=== PATIENT | male | born 1965 | race African-American/Black ===

== ENCOUNTER 2017-02-11 06:01 | Day surgery (SDC) | payer OTHER ==
[2017-02-11] MEDS ORDERED: LACTATED RINGERS 1,000 ML IV ONE (06:54)
[2017-02-11] MEDS ORDERED: INSULIN REGULAR HUMAN 100 UNIT/1 ML 10 ML MDV ONE ×2 (07:11→08:26)
[2017-02-11] MEDS ORDERED: PROPOFOL 200 MG/20 ML VIAL IVP ONE (08:00)
[2017-02-11] MEDS ORDERED: LIDOCAINE-MPF 2% 5 ML VIAL IM ONE (08:00)
[2017-02-11 09:44] VITALS: BP 140/92
== END 2017-02-11 06:02 | disposition home or self-care (01) ==
LOC: SDS 06:01
PROVIDERS: ATTEND Surgery
PROC: 0DBL8ZX Excision of Transverse Colon, Via Natural or Artificial Opening Endoscopic, Diagnostic (ICD-10-PCS; 2017-02-11)
PROC: 0DBN8ZX Excision of Sigmoid Colon, Via Natural or Artificial Opening Endoscopic, Diagnostic (ICD-10-PCS; 2017-02-11)
PROC: 0DBK8ZX Excision of Ascending Colon, Via Natural or Artificial Opening Endoscopic, Diagnostic (ICD-10-PCS; principal; 2017-02-11 07:30)
DX: Z12.11 Encounter for screening for malignant neoplasm of colon (principal); D12.2 Benign neoplasm of ascending colon; D12.5 Benign neoplasm of sigmoid colon; D12.3 Benign neoplasm of transverse colon; K64.8 Other hemorrhoids; E11.9 Type 2 diabetes mellitus without complications; I10 Essential (primary) hypertension; G47.33 Obstructive sleep apnea (adult) (pediatric)
CPT/HCPCS: 45380; J1815; J7120

== ENCOUNTER 2019-09-05 18:34 | Emergency (ER) | payer OTHER ==
--- NOTE | 2019-09-05 19:58 | ED Physician Documentation ---
History of Present Illness - Stated complaint Stated Complaint: TREVIZO - Chief complaint Chief Complaint: Neuro - History obtained from History obtained from: Patient (The patient is a 54-year-old male who is insulin-dependent diabetic presents tonight with a headache that started about 36 hours ago it was gradual in onset he does have a history of hypertension and headaches And reports that they usually resolve with either Tylenol or Profen b ut this headache has not resolved. He reports bifrontal and bitemporal headache without visual or hearing loss he denies any trauma denies being anticoagulated. Denies neck pain or fevers or rash. Reports the headache is not sudden in onset not maximum in intensity and not the worst headache of his life.) Review of Systems Constitutional: reports: Reviewed and negative Eyes: reports: Reviewed and negative Ears: reports: Reviewed and negative Nose: reports: Reviewed and negative Throat: reports: Reviewed and negative Cardiac: reports: Reviewed and negative Respiratory: reports: Reviewed and negative GI: reports: Reviewed and negative : reports: Reviewed and negative Skin: reports: Reviewed and negative Musculoskeletal: reports: Reviewed and negative Neurologic: reports: Headache Psychiatric: reports: Reviewed and negative Endocrine: reports: Reviewed and negative Immunocompromised: reports: Reviewed and negative PD PAST MEDICAL HISTORY - Past Medical History Past Medical History: Yes Cardiovascular: Hypertension Respiratory: None Endocrine/Autoimmune: Type 2 diabetes GI: None : None HEENT: None Psych: None Musculoskeletal: None Derm: None - Past Surgical History Past Surgical History: No - Present Medications Home Medications: Ambulatory Orders Medication Instructions Recorded Confirmed Insulin Detemir [Levemir] 10 unit SUBQ BID 02/10/17 09/05/19 Insulin Regular Human [NovoLIN R] 10 unit IVP ONCE 02/10/17 09/05/19 Sitagliptin Phos/Metformin HCl 1 each PO BID 02/10/17 09/05/19 [Janumet 50-500 mg Tablet] lisinopriL [Lisinopril] 20 mg PO DAILY 02/10/17 09/05/19 - Allergies Allergies/Adverse Reactions: Allergies Allergy/AdvReac Type Severity Reaction Status Date / Time No Known Drug Allergies Allergy Verified 09/05/19 18:42 - Social History Does the pt smoke?: No Smoking Status: Never smoker Does the pt drink ETOH?: No Does the pt have substance abuse?: No - Immunizations Immunizations are current?: Yes - POLST Patient has POLST: No PD ED PE NORMAL - Vitals Vital signs reviewed: Yes - General General: Alert and oriented X 3, No acute distress, Well developed/nourished - HEENT HEENT: Atraumatic, PERRL, Ears normal, Moist mucous membranes, Pharynx benign, Dentition benign - Neck Neck: Supple, no meningeal sign - Cardiac Cardiac: RRR, No murmur, Strong equal pulses - Respiratory Respiratory: No respiratory distress, Clear bilaterally - Abdomen Abdomen: Normal bowel sounds, Soft, Non tender, Non distended - Derm Derm: Warm and dry - Extremities Extremities: No deformity - Neuro Neuro: Alert and oriented X 3, pet care associate 2-12 intact, No motor deficit, No sensory deficit, Normal speech - Psych Psych: Normal mood, Normal affect Results - Vitals Vitals: Vital Signs - 24 hr 09/05/19 09/05/19 09/05/19 18:42 20:47 21:55 Temperature 36.5 C 36.2 C L Heart Rate 78 70 73 Respiratory 16 16 16 Rate Blood Pressure 184/81 H 164/95 H 168/85 H O2 Saturation 97 97 98 Oxygen O2 Source Room air - Labs Labs: Laboratory Tests 09/05/19 09/05/19 09/05/19 20:22 20:26 20:26 WBC 7.0 RBC 5.15 Hgb 13.8 L Hct 42.7 MCV 82.9 MCH 26.8 L MCHC 32.3 RDW 14.0 Plt Count 296 MPV 9.7 Neut # (Auto) 4.0 Lymph # (Auto) 2.0 Park # (Auto) 0.4 Eos # (Auto) 0.5 Baso # (Auto) 0.0 Absolute Nucleated RBC 0.00 Nucleated RBC % 0.0 Sodium 137 Potassium 4.4 Chloride 101 Carbon Dioxide 26 Anion Gap 10.0 BUN 16 Creatinine 0.9 Estimated GFR (MDRD) 107 Glucose 152 H POC Whole Bld Glucose 132 H Calcium 9.0 Total Bilirubin 0.5 Direct Bilirubin 0.1 AST 42 ALT 47 Alkaline Phosphatase 77 Total Protein 8.2 Albumin 4.1 Globulin 4.1 PD MEDICAL DECISION MAKING - ED course Complexity details: reviewed results, re-evaluated patient (22:00 headache resolved, patient requesting to be dcd home.), considered differential (will get CTH and accucheck as well as labs and give IVF and IV benadryl and compazine and reval.), d/w patient Departure - Departure Disposition: 01 Home, Self Care Clinical Impression: Headache Qualifiers: Headache type: unspecified Headache chronicity pattern: unspecified pattern Intractability: not intractable Qualified Code(s): R51 - Headache Condition: Stable Instructions: ED Cephalgia Unspecified Follow-Up: DAVID MCCRAY MD [Primary Care Provider] - Tomorrow
[2019-09-05] MEDS ORDERED: SODIUM CHLORIDE 0.9% 1,000 ML IV ONE (20:10)
[2019-09-05] MEDS ORDERED: diphenhydrAMINE INJ 50 MG/ML VIAL IVP STA (20:10)
[2019-09-05] MEDS ORDERED: PROCHLORPERAZINE 10 MG/2 ML VIAL IVP STA (20:10)
[2019-09-05 20:36] LABS: BASOPHILS % (AUTO) 0.6 %; EOSINOPHILS # (AUTO) 0.5 10^3/uL (0.0-0.7); HGB - HEMOGLOBIN 13.8 g/dL (14.0-18.0); LYMPHOCYTES % (AUTO) 28.9 %; MEAN CORPUSCULAR HEMOGLOBIN 26.8 pg (27.0-31.0); MEAN CORPUSCULAR HGB CONC 32.3 g/dL (32.0-36.0); MEAN CORPUSCULAR VOLUME 82.9 fL (80.0-94.0); MEAN PLATELET VOLUME 9.7 fL (7.4-11.4); MONOCYTES # (AUTO) 0.4 10^3/uL (0.0-1.0); NEUTROPHILS % (AUTO) 57.2 %; PLT - PLATELET COUNT 296 10^3/uL (130-450); RED BLOOD COUNT 5.15 10^6/uL (4.70-6.10)
[2019-09-05 20:51] LABS: ALBUMIN 4.1 g/dL (3.2-5.5); BILIRUBIN,DIRECT 0.1 mg/dL (0.1-0.5); BILIRUBIN,TOTAL 0.5 mg/dL (0.2-1.0); CREATININE 0.9 mg/dL (0.6-1.2); TOTAL PROTEIN 8.2 g/dL (6.7-8.2)
--- NOTE | 2019-09-05 21:23 | CT Report ---
Reason: hidalgo Procedure Date: 09/05/2019 Accession Number: [id number] / [id number] Procedure: CT - HEAD WO CPT Code: Final Report FULL RESULT: EXAM: CT HEAD EXAM DATE: 09/05/2019 08:44 PM. CLINICAL HISTORY: [place]. COMPARISON: None. TECHNIQUE: Multiaxial CT images were obtained from the foramen magnum to the vertex. Reformats: Sagittal and coronal. IV contrast: None. In accordance with CT protocol optimization, one or more of the following dose reduction techniques were utilized for this exam: automated exposure control, adjustment of mA and/or KV based on patient size, or use of iterative reconstructive technique. FINDINGS: Parenchyma: No intraparenchymal hemorrhage. No evidence of mass, midline shift, or CT findings of infarction. Price-white differentiation is distinct. Extraaxial Spaces: Normal for age. No subdural or epidural collections identified. Ventricles: Normal in size and position. Sinuses and Orbits: Imaged paranasal sinuses, orbits, and mastoids show no significant abnormality. Bones: No evidence of fracture or calvarial defect. Other: None. IMPRESSION: No significant intracranial abnormality. RADIA
[2019-09-05 21:56] VITALS: BP 168/85
== END 2019-09-05 22:10 | disposition home or self-care (01) ==
LOC: ED 18:34
DX: R51 Headache (principal); I10 Essential (primary) hypertension; E11.9 Type 2 diabetes mellitus without complications; Z79.4 Long term (current) use of insulin
CPT/HCPCS: 36415; 70450; 80048; 80076; 85025; 96361; 96374; 96375; 99283; 99284; J1200

== ENCOUNTER 2021-01-05 14:13 | Outpatient (CLI) | payer OTHER ==
--- NOTE | 2021-01-05 16:51 | XRAY Report ---
PROCEDURE: Abdomen 1 View X-Ray INDICATIONS: CONSTIPATION TECHNIQUE: 1 view of the abdomen were acquired. COMPARISON: None FINDINGS: Surgical changes and devices: None. Bowel: No pneumoperitoneum. The bowel gas pattern is nonobstructive. Moderate fecal burden noted i n the region of the descending colon. No imaging of the pelvis/rectum seen on this study. Soft tissues: No masses; visualized solid organ contours appear normal in size. No suspicious abdom inal calcifications. Bones: No suspicious bony abnormalities. IMPRESSION: In the imaged portions of the abdomen, there is a nonobstructive bowel gas pattern with moderate fecal burden seen in the region of the descending colon. If there is persistent clinical con cern, consider repeat imaging with a complete abdominal series. Reviewed by: Ralph Hager MD on 01/05/2021 4:49 PM PDT Approved by: Ralph Hager MD on 01/05/2021 4:49 PM PDT Station ID: [id number]
== END 2021-01-05 23:59 | disposition home or self-care (01) ==
LOC: DI.N 14:13
PROVIDERS: ATTEND Physician Assistant Medical
DX: K59.00 Constipation, unspecified (principal)

== ENCOUNTER 2021-01-05 14:44 | Outpatient (CLI) | payer OTHER ==
[2021-01-05 18:22] LABS: BASOPHILS % (AUTO) 0.6 %; EOSINOPHILS # (AUTO) 0.5 10^3/uL (0.0-0.7); EOSINOPHILS % (AUTO) 6.8 %; HCT - HEMATOCRIT 43.3 % (42.0-52.0); HGB - HEMOGLOBIN 13.9 g/dL (14.0-18.0); LYMPHOCYTES # (AUTO) 2.2 10^3/uL (1.5-3.5); LYMPHOCYTES % (AUTO) 31.7 %; MEAN CORPUSCULAR HEMOGLOBIN 26.8 pg (27.0-31.0); MEAN CORPUSCULAR HGB CONC 32.1 g/dL (32.0-36.0); MEAN CORPUSCULAR VOLUME 83.6 fL (80.0-94.0); MEAN PLATELET VOLUME 10.7 fL (7.4-11.4); MONOCYTES # (AUTO) 0.5 10^3/uL (0.0-1.0); NEUTROPHILS # (AUTO) 3.8 10^3/uL (1.5-6.6); NEUTROPHILS % (AUTO) 53.6 %; PLT - PLATELET COUNT 306 10^3/uL (130-450); RED BLOOD COUNT 5.18 10^6/uL (4.70-6.10); RED CELL DISTRIBUTION WIDTH 14.2 % (12.0-15.0)
[2021-01-05 18:54] LABS: ALBUMIN 4.2 g/dL (3.2-5.5); ALBUMIN/GLOBULIN RATIO 1.1 (1.0-2.2); BILIRUBIN,TOTAL 0.5 mg/dL (0.2-1.0); CREATININE 1.2 mg/dL (0.6-1.2); POTASSIUM 5.2 mmol/L (3.5-5.0); TOTAL PROTEIN 8.2 g/dL (6.7-8.2)
== END 2021-01-05 23:59 | disposition home or self-care (01) ==
LOC: LAB.N 14:44
PROVIDERS: ATTEND Physician Assistant Medical
DX: K59.00 Constipation, unspecified (principal)
CPT/HCPCS: 36415; 80053; 83690; 85025

== ENCOUNTER 2021-05-22 07:16 | Outpatient (CLI) | payer OTHER ==
--- NOTE | 2021-05-25 07:41 | Ultrasound Report ---
PROCEDURE: Abdomen Limited INDICATIONS: BULBUOUS GROWTHS ON THE ABDOMEN TECHNIQUE: Real-time focused scanning was performed of the abdomen, with image documentation. COMPARISON: None FINDINGS: There are 2 focal areas of heterogeneous echogenicity within the abdomen measuring 21 x 14 cm and 28 x 21 cm. Soft tissue edema is noted within these regions. No focal fluid collections. Area s of calcification are noted within the area of heterogeneous echogenicity on the right side. There i s minimal increased vascularity. IMPRESSION: Heterogeneous echogenicity within the subcutaneous tissues of the abdomen as above. Appearance is non specific on the basis of this exam and could be related to focal inflammation given appearance of domingo rounding subcutaneous fat. However, other etiologies of mass lesion cannot be excluded. If symptoms d o not resolve as would be expected with inflammation within 4-6 weeks, further evaluation with CT abd omen is recommended. Reviewed by: Preeti Haynes MD on 05/25/2021 7:40 AM PST Approved by: Preeti Haynes MD on 05/25/2021 7:40 AM PST Station ID: [id number]
== END 2021-05-22 07:17 | disposition home or self-care (01) ==
LOC: DI 07:16
PROVIDERS: ATTEND Nurse Practitioner Family
DX: R93.5 Abnormal findings on diagnostic imaging of other abdominal regions, including retroperitoneum (principal)

== ENCOUNTER 2021-10-22 10:17 | Outpatient (CLI) | payer OTHER ==
[2021-10-22 11:25] VITALS: BP 155/98
--- NOTE | 2021-10-22 11:25 | SLEEP CARE CONSULTATION ---
Information from patient questionnaire entered by Nate Brink MA. I have reviewed and concur with the information entered by Nate Brink MA. This document represents the service I personally performed and the decisions made by me, Jasmine Nolan ARNP. History of Present Illness Service Date and Time: 10/22/2021 1017 Reason for Visit: New patient (ONSET 06/2007, CPAO BROKE LAST MONTH, ), Previously diagnosed sleep apnea, sleep apnea on CPAP therapy Chief Complaint: reports: Snoring, Observed pauses in breathing, Other (CPAP machine broke about 2 months ago) Date of Onset: 2007 Usual bedtime: 1200 AM Time it takes to fall asleep: 3 - 60 MINUTES Snores at night: Yes Observed to quit breathing while asleep: Yes Number of times waking at night: 2 - 3 Reasons for waking at night: reports: Snoring, Gasping for air, Bathroom Toss, Turn, or Twitch while sleeping: No Recalls having dreams: Yes Usually gets out of bed at: DIFFERENT TIMES Feels refreshed in the morning: No Morning headache: Yes Sleepy or fatigued during the day: Yes Ever fallen asleep while driving: No Takes day naps: Yes Dreams during day naps: No Prior sleep studies: Yes Year and Where: [facility] 2007 Type of Sleep Study: Polysomnography Additional HPI information: I had the pleasure of seeing ORTIZ TEIXEIRA today. He was previously diagnosed with sleep apnea in 2007. His current complaints are observed pauses in breathing, snoring and diagnosis of severe LEAH. He was told he stopped breathing about 133 times an hour. This is extremely severe sleep apnea. He states his CPAP that he obtained in 2007 broke about 2 months ago and he needs a new machine. He also needs supplies. - Parasomnia Symptoms Ever been unable to move upon waking from sleep: No Walks in sleep: No Talks in sleep: No Ever acted out dreams in sleep: No Ever felt weak in the knees when startled or emotional: No Bothered by creepy, crawly, restless sensations in legs: Yes Problems with memory or concentration: No CPAP Compliance Data - Data Reviewed with Patient Compliance rate %: 0 (30 day/hrs per night 0:48) Current pressure setting (cmH2O): 8 (avg pressure 7.3) Average residual AHI: 3.4 Average large leak: 33.2 L/min Compliance data discussion: He has used [employer] in the past for his supplies but has not gotten anything for a long time. He has an old RemStar machine that is broken and no longer has pressure. It has an error message that it needs service with a loud beeping sound. He has been using a nasal pillows mask. He has 3 of the masks and just washes them and reuses them. He has not got new supplies for a long time. Subjective Missed days of use due to: reports: other (machine broke almost 2 months ago) Patient concerns: reports: air blowing in eyes, mask leak noise, condensation in mask/hose, dry mouth, nose, throat (uses Biotene nightly for dry mouth). denies: aerophagia, mask discomfort, nasal congestion, epistaxis, other Observed to snore while using device: No Current pressure setting perceived as: comfortable On therapy, patient: reports: sleeping better, awakening more refreshed, being more awake and alert during the day, more rested overall. denies: drowsiness while driving Initial [place] Sleepiness Scale score: 10 (10/2021) Past Medical History Past Medical History: reports: Hypertension, Diabetes, Arthritis Social History The patient's occupation is a [employer]. Patient is and lives in [place]. Have you smoked in the past 12 months: No Alcohol use: No Caffeine use: Yes Caffeine amount and frequency: 1 cup coffee daily; 2 diet sodas, 3 times a week Family History Family history of sleep disordered breathing: No Allergies and Home Medications Known drug allergies: No Drug allergies reviewed: Yes (NKDA) Home medication list reviewed: Yes Allergy and home medication list: Allergies No Known Drug Allergies Allergy (Verified 09/05/19 18:42) Medication: Metformin Lisinopril Atorvastatin Empagliflozin Vitamins Levemir Novolog Review of Systems Weight gain over past 5 years: 50 pounds Cardiovascular: reports: leg or foot swelling Respiratory: reports: wheeze Neurological: reports: headaches Physical Exam Vital signs obtained and entered by: MINH LEON, Blood Pressure: 155/98 (RIGHT, RESP 18, PULSE 94) Cuff size: wrist Heart Rate: 94 O2 Saturation: 97 (CLOTH MASK) Height: 5 ft 11 in Weight: 300 lb Body Mass Index: 41.8 BMI Classification: Morbidly Obese Neck circumference: 22 (INCHES) Heart: regular rate and rhythm Lungs: clear bilaterally Impression and Plan 1. Obstructive Sleep Apnea-Hypopnea Syndrome, extremely severe per patient report, with unknown treatment compliance and good apnea control. On CPAP therapy, the patient has better sleep quality and is more rested overall. Patient does not have a copy of his sleep study and we will try to obtain this for [facility]. Patient needs a replacement device since his is not working and he has extremely severe obstructive sleep apnea per his report 133 episodes an hour. Once we have a copy of his sleep study, we will send a prescription to update his device to a DME of his choice. I cannot obtain much information from his broken device to know what pressure to set on new device. I was able to see an average pressure of 7.6 cmH2O. I will set APAP pressure to 6- 10 cmH2O and adjust as needed after followup. If we are unable to obtain a copy of his sleep study I will have to order a sleep study for verification. Patient voiced understanding and agreement with this plan of care. Patient's apnea severity and rationale for treatment to reduce apnea, improve sleep quality and reduce cardiovascular and cerebrovascular events was reviewed. I also reviewed the benefit of consistent device use of CPAP for hypertension and diabetes. 2. Obesity, unspecified. Currently patients BMI is 41.8. Obesity increases the risk of apnea, CPAP pressure requirements and overall health risks especially cardiovascular and diabetes. Thus patient is advised to lose weight. * Continue auto CPAP pressure at 6-10 cmH2O * Obtain copy of sleep study, if unable will order a sleep study to verify diagnosis * Update device * Update supplies * Notify me if snoring with mask or feeling that the pressure is too much or too little * Attempt to lose weight * Call this office if any problems using CPAP * Return for follow up one month after obtaining new device or after sleep study completed, or sooner if concerns arise Counseling Topics: Weight loss health impact Visit Type: In Office Time Spent with Patient (minutes): 34 Provider Statement: I spent 100% of the Face to Face Visit with the patient with greater than 50% spent counseling the patient and coordination of care.
== END 2021-10-22 10:18 | disposition home or self-care (01) ==
LOC: SC 10:17
PROVIDERS: ATTEND Nurse Practitioner Family
DX: G47.33 Obstructive sleep apnea (adult) (pediatric) (principal); E66.01 Morbid (severe) obesity due to excess calories; Z68.41 Body mass index [BMI] 40.0-44.9, adult
CPT/HCPCS: 99203; 99212

== ENCOUNTER 2022-01-15 08:50 | Outpatient (CLI) | payer OTHER ==
--- NOTE | 2022-01-15 09:28 | SLEEP CARE CONSULTATION ---
Information from patient questionnaire entered by Nate Brink MA. I have reviewed and concur with the information entered by Nate Brink MA. This document represents the service I personally performed and the decisions made by , Jasmine Nolan ARNP. History of Present Illness Service Date and Time: 01/15/2022 0850 Previous diagnosis: Severe, Obstructive Sleep Apnea-Hypopnea Syndrome AHI: 41.05 (in 2006) Reason for follow up: first compliance (RESMED, ), first compliance after device update Equipment type: CPAP Equipment obtained from: Other ([facility]; got initial supplies) Mask style: Nasal pillows Backup mask available: No (will keep old mask when replaced) Last cushion change: 1 month Prior sleep studies: Yes Year and Where: [facility] 2007 Type of Sleep Study: Polysomnography HPI additional information: ORTIZ TEIXEIRA was diagnosed to have severe, AHI 41.05, obstructive sleep apnea- hypopnea syndrome and returned today for CPAP therapy first compliance after de vice update follow-up. Sleep Study - Results Type of Sleep Study: Polysomnography Prior sleep studies: Yes Year and Where: [facility] 2007 CPAP Compliance Data - Data Reviewed with Patient Average duration of nightly device use: 2 hours 54 minutes Compliance rate %: 17 (30 days) Current pressure setting (cmH2O): 6-10 Average residual AHI: 1.0 Average large leak: 0 Subjective Patient concerns: reports: dry mouth, nose, throat. denies: aerophagia, mask discomfort, air blowing in eyes, mask leak noise, condensation in mask/hose, nasal congestion, epistaxis, other Observed to snore while using device: No Current pressure setting perceived as: comfortable On therapy, patient: reports: sleeping better, awakening more refreshed, being more awake and alert during the day, more rested overall, other (not having headaches as much in the morning). denies: drowsiness while driving Initial [place] Sleepiness Scale score: 10 (10/2021) Current [place] Sleepiness Scale score: 8 (01/15/2022) Allergies and Home Medications Known drug allergies: No (NKA) Home medication list reviewed: Yes (no changes) Allergy and home medication list: Allergies No Known Drug Allergies Allergy (Verified 09/05/19 18:42) Review of Systems Review of systems same as previous: Yes (no changes) Physical Exam Vital signs obtained and entered by: Rene BRINK CMA [facility] Blood Pressure: 131/80 (RESP 18. PULSE 82, LEFT) Cuff size: wrist Heart Rate: 82 O2 Saturation: 98 (PAPER MASK) Height: 5 ft 11 in Weight: 290 lb (CLOTHES) Body Mass Index: 40.4 BMI Classification: Morbidly Obese Impression and Plan 1. Obstructive Sleep Apnea-Hypopnea Syndrome, severe, with fair treatment compliance and good apnea control. On CPAP therapy, the patient has better sleep quality and is more rested overall. Patient obtained a Koki 3B CPAP. He states he is getting used to it again but his stats show that he is not reaching the 4 hour a night requirement for compliance. Patient states he gets up several times a night to go to the bathroom and has leg pain. He will forget to put the mask back on after getting up during the night. He will also fall asleep while watching television. He states he is going to try to put the mask on when he is watching TV to make sure he does not fall asleep without it. To prevent falling asleep without CPAP after using the bathroom, patient can either unhook the hose and keep mask on or put mask on pillow. He voiced understanding and agreement.Patient's apnea severity and rationale for treatment to reduce apnea, improve sleep quality and reduce cardiovascular and cerebrovascular events was reviewed. I also reviewed the benefit of consistent device use of CPAP for hypertension and diabetes. I want him to come back in 1 to 2 months so that we can recheck his compliance. 2. Obesity, unspecified. Currently patients BMI is 40.4. Obesity increases the risk of apnea, CPAP pressure requirements and overall health risks especially cardiovascular and diabetes. Thus patient is advised to lose weight. Weight loss can be done with reducing portion size, reducing refined foods and balancing content with vegetables, fruit and whole grain foods. In addition, patient encouraged to get regular exercise. The patient's CPAP pressure range should accommodate some weight loss. Symptoms to report for additional pressure adjustment discussed. * Continue auto CPAP pressure at 6-10 cmH2O * Notify me if snoring with mask or feeling that the pressure is too much or too little * Attempt to lose weight * Call this office if any problems using CPAP * Return for follow up in 1-2 months, or sooner if concerns arise Counseling Topics: Spare mask, Weight loss health impact Visit Type: In Office Time Spent with Patient (minutes): 23 Provider Statement: I spent 100% of the Face to Face Visit with the patient with greater than 50% spent counseling the patient and coordination of care.
[2022-01-15 09:29] VITALS: BP 131/80
== END 2022-01-15 08:51 | disposition home or self-care (01) ==
LOC: SC 08:50
PROVIDERS: ATTEND Nurse Practitioner Family
DX: G47.33 Obstructive sleep apnea (adult) (pediatric) (principal); E66.01 Morbid (severe) obesity due to excess calories; Z68.41 Body mass index [BMI] 40.0-44.9, adult
CPT/HCPCS: 99212; 99213

== ENCOUNTER 2022-03-11 08:24 | Outpatient (CLI) | payer OTHER ==
[2022-03-11 08:54] VITALS: BP 138/78
--- NOTE | 2022-03-11 08:54 | SLEEP CARE CONSULTATION ---
Information from patient questionnaire entered by Shreya Brown MA. I have reviewed and concur with the information entered by Shreya Brown MA. This document represents the service I personally performed and the decisions made by , Jasmine Nolan ARNP. History of Present Illness Service Date and Time: 03/11/2022 0824 Previous diagnosis: Severe, Obstructive Sleep Apnea-Hypopnea Syndrome AHI: 41.05 Reason for follow up: one month Equipment type: CPAP (Koki) Equipment obtained from: Other ([facility], [facility]; needs to call for supplies) Mask style: Nasal pillows Backup mask available: No (will keep old mask when replaced) Prior sleep studies: Yes Year and Where: [facility] 2007 Type of Sleep Study: Polysomnography HPI additional information: ORTIZ TEIXEIRA was diagnosed to have severe, AHI 41.05, obstructive sleep apnea- hypopnea syndrome and returned today for CPAP therapy one month follow-up. Sleep Study - Results Type of Sleep Study: Polysomnography Prior sleep studies: Yes Year and Where: [facility] 2007 CPAP Compliance Data - Data Reviewed with Patient Average duration of nightly device use: 5.06 hours Compliance rate %: 83 (25/30 days used) Current pressure setting (cmH2O): 6-10 Average residual AHI: 1.0 Average large leak: 0 Subjective Patient concerns: reports: dry mouth, nose, throat. denies: aerophagia, mask discomfort, air blowing in eyes, mask leak noise, condensation in mask/hose, nasal congestion, epistaxis (dry mouth) Observed to snore while using device: No Current pressure setting perceived as: comfortable On therapy, patient: reports: sleeping better, awakening more refreshed, being more awake and alert during the day, more rested overall. denies: drowsiness while driving Initial [place] Sleepiness Scale score: 10 (10/2021) Current [place] Sleepiness Scale score: 4 (03/11/22) Allergies and Home Medications Drug allergies reviewed: Yes (NKDA) Home medication list reviewed: Yes (no changes) Allergy and home medication list: Allergies No Known Drug Allergies Allergy (Verified 09/05/19 18:42) Review of Systems Review of systems same as previous: Yes (no changes) Physical Exam Vital signs obtained and entered by: JAX WILKINSON Blood Pressure: 138/78 (LEFT ARM) Cuff size: LARGE Heart Rate: 80 Height: 5 ft 11 in Weight: 299 lb Body Mass Index: 41.7 BMI Classification: Morbidly Obese Impression and Plan 1. Obstructive Sleep Apnea-Hypopnea Syndrome, severe, with good treatment compliance and good apnea control. On CPAP therapy, the patient has better sleep quality and is more rested overall. Ortiz has been able to increase his compliance on his Okki CPAP. He has significant improvement of his sleep apnea and is satisfied with current CPAP therapy. Patient needs to order some supplies. I will write a prescription to update his supplies since he is now in compliance. Patient's apnea severity and rationale for treatment to reduce apnea, improve sleep quality and reduce cardiovascular and cerebrovascular event s was reviewed. I also reviewed the benefit of consistent device use of CPAP for hypertension and diabetes. We will follow up with him next year. 2. Obesity, unspecified. Currently patients BMI is 41.7. Obesity increases the risk of apnea, CPAP pressure requirements and overall health risks especially cardiovascular and diabetes. Thus patient is advised to lose weight. Weight loss can be done with reducing portion size, reducing refined foods and balancing content with vegetables, fruit and whole grain foods. In addition, patient encouraged to get regular exercise. * Continue auto CPAP pressure at 6-10 cmH2O * Update supplies * Notify me if snoring with mask or feeling that the pressure is too much or too little * Attempt to lose weight * Call this office if any problems using CPAP * Return for follow up in 1 year, or sooner if concerns arise Counseling Topics: Spare mask, Weight loss health impact Prescriptions: Device supplies Visit Type: In Office Time Spent with Patient (minutes): 20 Provider Statement: I spent 100% of the Face to Face Visit with the patient with greater than 50% spent counseling the patient and coordination of care.
== END 2022-03-11 08:25 | disposition home or self-care (01) ==
LOC: SC 08:24
PROVIDERS: ATTEND Nurse Practitioner Family
DX: G47.33 Obstructive sleep apnea (adult) (pediatric) (principal); E66.01 Morbid (severe) obesity due to excess calories; Z68.41 Body mass index [BMI] 40.0-44.9, adult
CPT/HCPCS: 99212; 99213

== ENCOUNTER 2023-11-20 17:07 | Emergency (ER) | payer OTHER ==
--- NOTE | 2023-11-20 17:30 | ED Physician Documentation ---
PD HPI DYSPNEA - Stated complaint Stated Complaint: SOA/HEAD PX - Chief complaint Chief Complaint: Resp - History obtained from History obtained from: Patient - Additional information Additional information: 58-year-old gentleman with type 2 diabetes, chronic pedal edema, diabetic neuropathy presents with shortness of breath. He says he has been wheezing with mild cough and shortness of breath for about 6 months. He said his doctor did an EKG and a chest x-ray and told him everything was fine. He is chronically on furosemide for his pedal edema. He has no chest pain with this. No history of asthma or other pulmonary issue. No history of heart problems. Is not and never was a smoker. PD PAST MEDICAL HISTORY - Past Medical History Past Medical History: Yes Cardiovascular: Hypertension Respiratory: Sleep apnea, CPAP use Neuro: Peripheral neuropathy Endocrine/Autoimmune: Type 2 diabetes GI: None : Benign prostate hypertrophy HEENT: None Psych: None Musculoskeletal: Osteoarthritis Derm: None - Past Surgical History Past Surgical History: No - Present Medications Home Medications: Ambulatory Orders Medication Instructions Recorded Confirmed Insulin Detemir [Levemir] 10 unit SUBQ BID 02/10/17 09/05/19 Insulin Regular Human [NovoLIN R] 10 unit IVP ONCE 02/10/17 09/05/19 Sitagliptin Phos/Metformin HCl 1 each PO BID 02/10/17 09/05/19 [Janumet 50-500 mg Tablet] lisinopriL [Lisinopril] 20 mg PO DAILY 02/10/17 09/05/19 Albuterol Sulf [Ventolin Hfa 1 - 2 puffs INH Q4HR PRN #1 each 11/20/23 Inhaler] - Allergies Allergies/Adverse Reactions: Allergies Allergy/AdvReac Type Severity Reaction Status Date / Time No Known Drug Allergies Allergy Verified 11/20/23 17:14 - Social History Does the pt smoke?: No Smoking Status: Never smoker Does the pt drink ETOH?: No Does the pt have substance abuse?: No - Immunizations Immunizations are current?: Yes - POLST Patient has POLST: No PD ED PE NORMAL - Vitals Vital signs reviewed: Yes - General General: Alert and oriented X 3, Other (Morbidly obese gentleman who appears slightly winded and tachypneic but speaking in full sentences.) - Neck Neck: Supple, no meningeal sign, No bony TTP - Cardiac Cardiac: RRR, No murmur - Respiratory Respiratory: Other (Mild tachypnea but speaking in full sentences. Diminished throughout, potentially due to body habitus. No obvious focal findings.) - Abdomen Abdomen: Non tender - Back Back: No CVA TTP, No spinal TTP - Derm Derm: Normal color, Warm and dry - Extremities Extremities: Other (3+ pitting pedal edema, symmetric and chronic per patient.) - Neuro Neuro: Alert and oriented X 3 Results - Vitals Vitals: Vital Signs - 24 hr 11/20/23 11/20/23 11/20/23 17:15 17:45 17:51 Temperature 36.8 C Heart Rate 99 91 93 Respiratory 24 20 20 Rate Blood Pressure 184/88 H 177/80 H O2 Saturation 96 94 Oxygen O2 Source Room air - EKG (time done) 1733 EKG releavant findings:: EKG personally interpreted by author of this note. Relevant findings are: Rate: Rate (enter#) (94) Rhythm: NSR (w pac) [place]: Normal Intervals: Prolonged ID, Prolonged QT (bordelrine) QRS: Normal Ischemia: Normal ST segments - Labs Labs: Laboratory Tests 11/20/23 11/20/23 11/20/23 17:32 17:32 17:32 WBC 7.4 RBC 4.57 L Hgb 12.0 L Hct 38.3 L MCV 83.8 MCH 26.3 L MCHC 31.3 L RDW 15.6 H Plt Count 231 MPV 9.6 Neut # (Auto) 4.3 Lymph # (Auto) 1.9 [place] # (Auto) 0.6 Eos # (Auto) 0.6 Baso # (Auto) 0.0 Absolute Nucleated RBC 0.00 Nucleated RBC % 0.0 VBG pH 7.434 H VBG pCO2 49.1 VBG pO2 34.3 VBG HCO3 32.2 H VBG Total CO2 33.7 H VBG O2 Saturation 68.3 VBG Base Excess 6.7 H Sodium 134 L Potassium 4.1 Chloride 98 L Carbon Dioxide 30 Anion Gap 6.0 BUN 15 Creatinine 1.0 Estimated GFR (MDRD) 93 Glucose 191 H Calcium 9.6 Total Bilirubin 0.4 AST 45 H ALT 79 H Alkaline Phosphatase 103 B-Natriuretic Peptide Total Protein 7.6 Albumin 3.8 Globulin 3.8 Albumin/Globulin Ratio 1.0 11/20/23 17:32 WBC RBC Hgb Hct MCV MCH MCHC RDW Plt Count MPV Neut # (Auto) Lymph # (Auto) [place] # (Auto) Eos # (Auto) Baso # (Auto) Absolute Nucleated RBC Nucleated RBC % VBG pH VBG pCO2 VBG pO2 VBG HCO3 VBG Total CO2 VBG O2 Saturation VBG Base Excess Sodium Potassium Chloride Carbon Dioxide Anion Gap BUN Creatinine Estimated GFR (MDRD) Glucose Calcium Total Bilirubin AST ALT Alkaline Phosphatase B-Natriuretic Peptide 28 Total Protein Albumin Globulin Albumin/Globulin Ratio - Rads (name of study) Chest x-ray was suggestive of fluid overload but I do wonder if this is due to body habitus. Relevant Findings:: Final report received, EMP independent interpretation of test PD Medical Decision Making - ED course ED course: He presents with wheezing, it is not acute, it has been going on for 6 months. He has some hypertension but otherwise unremarkable vital signs with no hypoxemia. COPD is considered but he was never a smoker. Adult onset asthma is a possibility. Congestive heart failure was also a possibility but his BNP was normal. Chest x-ray was read as possible pulmonary edema but I believe this is more related to body habitus noting his weight is 149 kg. Otherwise his CBC showed mild anemia. His venous blood gas was unremarkable. CMP really only notable for very mild transaminitis. He did feel better after an albuterol breathing treatment here. Departure - Departure Disposition: 01 Home, Self Care Clinical Impression: Wheezing Condition: Good Record reviewed to determine appropriate education?: Yes Instructions: ED Wheezing Prescriptions: Albuterol Sulf [Ventolin Hfa Inhaler] 1 - 2 puffs INH Q4HR PRN #1 each PRN Reason: Shortness Of Air/Wheezing Comments: You were seen today for wheezing, thankfully there is no heart issue noted with congestive heart failure very unlikely with a BNP of 28. Otherwise your chest x-ray looks pretty much okay, a little limited by your size and you have mild elevation in your liver enzymes (AST 45 and ALT 79) most consistent with nonalcoholic fatty liver disease since you do not drink. I am prescribing the inhaler and recommend you follow-up with your primary care physician with consideration for referral for pulmonary function testing and/or pulmonology visit. Call your doctor to arrange a follow-up appointment, make the next available appointment. In the interim, return anytime if worse or if new symptoms develop. Forms: PCP List
[2023-11-20 17:38] LABS: BASOPHILS % (AUTO) 0.5 %; EOSINOPHILS # (AUTO) 0.6 10^3/uL (0.0-0.7); EOSINOPHILS % (AUTO) 7.8 %; HCT - HEMATOCRIT 38.3 % (42.0-52.0); LYMPHOCYTES # (AUTO) 1.9 10^3/uL (1.5-3.5); LYMPHOCYTES % (AUTO) 25.3 %; MEAN CORPUSCULAR HEMOGLOBIN 26.3 pg (27.0-31.0); MEAN CORPUSCULAR HGB CONC 31.3 g/dL (32.0-36.0); MEAN CORPUSCULAR VOLUME 83.8 fL (80.0-94.0); MEAN PLATELET VOLUME 9.6 fL (7.4-11.4); MONOCYTES # (AUTO) 0.6 10^3/uL (0.0-1.0); MONOCYTES % (AUTO) 7.8 %; NEUTROPHILS # (AUTO) 4.3 10^3/uL (1.5-6.6); NEUTROPHILS % (AUTO) 58.3 %; PLT - PLATELET COUNT 231 10^3/uL (130-450); RED BLOOD COUNT 4.57 10^6/uL (4.70-6.10); RED CELL DISTRIBUTION WIDTH 15.6 % (12.0-15.0); VBG HCO3 32.2 mmol/L (23-28); VBG PCO2 49.1 mmHg (41-51); VBG PH 7.434 (7.31-7.41); VBG PO2 34.3 mmHg (25-47); VBG TOTAL CO2 33.7 mmol/L (24-29); WHITE BLOOD COUNT 7.4 x10^3/uL (4.8-10.8)
[2023-11-20 17:39] LABS: VBG BASE EXCESS 6.7 mmol/L (-2 - +2); VBG OXYGEN SATURATION 68.3 % (60-80)
[2023-11-20] MEDS: IPRATROPIUM/ALBUTEROL 3 ML NEB INH STA (17:43)
--- NOTE | 2023-11-20 17:50 | XRAY Report ---
PROCEDURE: Chest 1V INDICATIONS: soa TECHNIQUE: One view of the chest was acquired. COMPARISON: None. FINDINGS: Surgical changes and devices: None. Lungs and pleura: Vascular crowding and interstitial markings. No pleural effusion. No pneumothorax. Mediastinum: Mediastinal contours appear normal. Heart size is enlarged. Bones and chest wall: No suspicious bony lesions. Overlying soft tissues appear unremarkable. IMPRESSION: Constellation of findings suggestive of pulmonary edema. Reviewed by: Virgilio Valerio MD on 11/20/2023 4:49 PM AKDT Approved by: Virgilio Valerio MD on 11/20/2023 4:49 PM AKDT Station ID: [id number]
[2023-11-20 17:51] LABS: ALBUMIN 3.8 g/dL (3.2-5.5); BILIRUBIN,TOTAL 0.4 mg/dL (0.2-1.0); CALCIUM 9.6 mg/dL (8.5-10.3); POTASSIUM 4.1 mmol/L (3.5-4.5); TOTAL PROTEIN 7.6 g/dL (6.4-8.9)
[2023-11-20 18:40] VITALS: BP 177/88; O2SAT 98
== END 2023-11-20 18:37 | disposition home or self-care (01) ==
LOC: ED 17:07
DX: R06.2 Wheezing (principal); R60.0 Localized edema; I10 Essential (primary) hypertension; G47.30 Sleep apnea, unspecified; E11.40 Type 2 diabetes mellitus with diabetic neuropathy, unspecified; Z79.4 Long term (current) use of insulin
CPT/HCPCS: 36415; 80053; 82803; 83880; 85025; 93005; 94640; 99284

== ENCOUNTER 2023-11-23 08:15 | Outpatient (CLI) | payer OTHER ==
--- NOTE | 2023-11-23 16:26 | XRAY Report ---
PROCEDURE: Chest 2V INDICATIONS: SHORTNESS OF BREATH TECHNIQUE: 2 views of the chest were acquired. COMPARISON: 11/20/2023 FINDINGS: Surgical changes and devices: None. Lungs and pleura: Thickening of the interstitial markings bilaterally and diffusely. No dense consol idations, pleural effusion, or pneumothorax. Mediastinum: Mediastinal contours appear normal. Heart size is normal. No significant central venou s congestion. Bones and chest wall: No suspicious bony lesions. Overlying soft tissues appear unremarkable. IMPRESSION: Diffuse thickening of the interstitial markings bilaterally without central venous congestion. Differ ential diagnosis includes resolving pulmonary edema, viral or atypical interstitial pneumonitis, less likely bronchitis. Correlate with labs. Reviewed by: Maria Fernanda Wei MD on 11/23/2023 4:25 PM PDT Approved by: Maria Fernanda Wei MD on 11/23/2023 4:25 PM PDT Station ID: [id number]
== END 2023-11-23 08:30 | disposition home or self-care (01) ==
LOC: DI.N 08:15
PROVIDERS: ATTEND Physician Assistant Medical
DX: R91.8 Other nonspecific abnormal finding of lung field (principal)

== ENCOUNTER 2023-11-24 17:26 | Outpatient (CLI) | payer OTHER | END 2023-11-24 23:59 | disposition critical access hospital (66) | LOC: EMS 17:26 | DX: R06.02 Shortness of breath (principal) | CPT/HCPCS: A0425; A0427 ==

== ENCOUNTER 2023-11-24 17:49 | Inpatient (IN) | payer OTHER ==
--- NOTE | 2023-11-24 17:58 | ED Physician Documentation ---
History of Present Illness - Stated complaint Stated Complaint: SOA - History obtained from History obtained from: Patient, EMS - Additonal information Additional information: 58-year-old gentleman with history of type 2 diabetes, chronic pedal edema on Lasix, diabetic neuropathy, and morbid obesity. I saw him a few days ago for 6 months of wheezing with cough and shortness of breath. He improved with albuterol. He was discharged home. The workup was otherwise negative with normal BNP, CBC, CMP, his chest x-ray was suggestive of fluid overload but to my eye I thought it was more consistent with just his body habitus. He did not fill his albuterol inhaler. He went to the clinic yesterday and had a chest x-ray showing "diffuse thickening of the interstitial markings bilaterally without central venous congestion. Differential diagnosis includes resolving pulmonary edema, viral or atypical interstitial pneumonitis, less likely bronchitis. Correlate with labs." He went back to the clinic today and was referred here after evaluation. He had a room air sat of 88%. He received a DuoNeb en route and was not hypoxic for EMS. PD PAST MEDICAL HISTORY - Past Medical History Cardiovascular: Hypertension Respiratory: Sleep apnea, CPAP use Neuro: Peripheral neuropathy Endocrine/Autoimmune: Type 2 diabetes GI: None : Benign prostate hypertrophy HEENT: None Psych: None Musculoskeletal: Osteoarthritis Derm: None - Past Surgical History Past Surgical History: No - Present Medications Home Medications: Ambulatory Orders Medication Instructions Recorded Confirmed Insulin Regular Human [NovoLIN R] 10 unit IVP ONCE 02/10/17 11/24/23 Sitagliptin Phos/Metformin HCl 1 each PO BID 02/10/17 11/24/23 [Janumet 50-500 mg Tablet] lisinopriL [Lisinopril] 20 mg PO DAILY 02/10/17 11/24/23 Albuterol Sulf [Ventolin Hfa 1 - 2 puffs INH Q4HR PRN #1 each 11/20/23 11/24/23 Inhaler] - Allergies Allergies/Adverse Reactions: Allergies Allergy/AdvReac Type Severity Reaction Status Date / Time No Known Drug Allergies Allergy Verified 11/24/23 17:56 - Social History Does the pt smoke?: No Smoking Status: Never smoker Does the pt drink ETOH?: No Does the pt have substance abuse?: No - Immunizations Immunizations are current?: Yes - POLST Patient has POLST: No PD ED PE NORMAL - Vitals Vital signs reviewed: Yes - General General: Alert and oriented X 3, Other (He is moderately tachypneic but speaking in full sentences and in good spirits.) - HEENT HEENT: PERRL, EOMI - Neck Neck: Supple, no meningeal sign, No bony TTP - Cardiac Cardiac: RRR, No murmur - Respiratory Respiratory: Other (Wheezes throughout without focal findings. Moderately tachypneic.) - Extremities Extremities: Other (2-3+ pitting pedal edema, symmetric and bilateral.) - Neuro Neuro: Alert and oriented X 3, Normal speech Results - Vitals Vitals: Vital Signs - 24 hr 11/24/23 11/24/23 11/24/23 17:56 18:15 18:17 Temperature 36.8 C Heart Rate 100 95 94 Respiratory 30 H 32 H 33 H Rate Blood Pressure 200/92 H 181/104 H 185/87 H O2 Saturation 94 84 L 93 If not protocol 2 : Oxygen Flow, liters/minute 11/24/23 18:30 Temperature Heart Rate 94 Respiratory 26 H Rate Blood Pressure 187/86 H O2 Saturation 94 If not protocol 2 : Oxygen Flow, liters/minute Oxygen O2 Source Nasal cannula Oxygen Flow Rate 2 - Labs Labs: Laboratory Tests 11/24/23 11/24/23 11/24/23 18:04 18:04 18:04 WBC 6.4 RBC 4.44 L Hgb 11.6 L Hct 37.7 L MCV 84.9 MCH 26.1 L MCHC 30.8 L RDW 15.7 H Plt Count 261 MPV 10.1 Neut # (Auto) 4.3 Lymph # (Auto) 1.6 [place] # (Auto) 0.4 Eos # (Auto) 0.1 Baso # (Auto) 0.0 Absolute Nucleated RBC 0.00 Nucleated RBC % 0.0 Sodium 135 Potassium 3.9 Chloride 95 L Carbon Dioxide 34 H Anion Gap 6.0 BUN 19 Creatinine 1.1 Estimated GFR (MDRD) 84 L Glucose 56 L* Calcium 9.3 Total Bilirubin 0.4 AST 112 H ALT 139 H Alkaline Phosphatase 118 B-Natriuretic Peptide 25 Total Protein 7.2 Albumin 3.9 Globulin 3.3 Albumin/Globulin Ratio 1.2 - Rads (name of study) CTA Chest Relevant Findings:: Final report received (Dependent groundglass and centrilobular nodules most consistent with an infectious or inflammatory bronchiolitis versus aspiration. Lymphadenopathy of the supraclavicular fossa and axillary chain), EMP independent interpretation of test PD Medical Decision Making - ED course ED course: 58-year-old gentleman with diabetes, diabetic neuropathy and morbid obesity has had progressive wheezing and now has an oxygen requirement. Workup demonstrates a CBC that's showing mild anemia but otherwise unremarkable. CMP showing slightly worse transaminitis than the other day with low glucose which was repleted orally. Subsequently a CTA of the chest was concerning for infectious bronchiolitis (no history of aspiration by history) and concern for lymphoma. It was after shift change for the hospitalist with Dr. Kruger was still here and I confirmed with her that he was in okay admit for this facility and she agreed asked me to order flow cytometry which I arranged with the lab and subsequently spoke with Dr. Guan for admission at 7:50 PM. Departure - Departure Disposition: 66 [facility] DC/Xfer Clinical Impression: Bronchiolitis, Wheezing, Lymphadenopathy Respiratory failure Qualifiers: Chronicity: acute Respiratory failure complication: hypoxia Qualified Code(s): J96.01 - Acute respiratory failure with hypoxia Condition: Good Record reviewed to determine appropriate education?: Yes
[2023-11-24 18:09] LABS: BASOPHILS % (AUTO) 0.3 %; EOSINOPHILS # (AUTO) 0.1 10^3/uL (0.0-0.7); EOSINOPHILS % (AUTO) 0.8 %; HCT - HEMATOCRIT 37.7 % (42.0-52.0); HGB - HEMOGLOBIN 11.6 g/dL (14.0-18.0); LYMPHOCYTES # (AUTO) 1.6 10^3/uL (1.5-3.5); LYMPHOCYTES % (AUTO) 24.3 %; MEAN CORPUSCULAR HEMOGLOBIN 26.1 pg (27.0-31.0); MEAN CORPUSCULAR HGB CONC 30.8 g/dL (32.0-36.0); MEAN CORPUSCULAR VOLUME 84.9 fL (80.0-94.0); MEAN PLATELET VOLUME 10.1 fL (7.4-11.4); MONOCYTES # (AUTO) 0.4 10^3/uL (0.0-1.0); MONOCYTES % (AUTO) 6.4 %; NEUTROPHILS # (AUTO) 4.3 10^3/uL (1.5-6.6); NEUTROPHILS % (AUTO) 67.9 %; PLT - PLATELET COUNT 261 10^3/uL (130-450); RED BLOOD COUNT 4.44 10^6/uL (4.70-6.10); RED CELL DISTRIBUTION WIDTH 15.7 % (12.0-15.0); WHITE BLOOD COUNT 6.4 x10^3/uL (4.8-10.8)
[2023-11-24] MEDS: methylPREDNISolone SUCCINATE 125 MG/2 ML VIAL IVP STA (18:09)
[2023-11-24 18:27] LABS: ALBUMIN 3.9 g/dL (3.2-5.5); ALBUMIN/GLOBULIN RATIO 1.2 (1.0-2.2); BILIRUBIN,TOTAL 0.4 mg/dL (0.2-1.0); CALCIUM 9.3 mg/dL (8.5-10.3); CREATININE 1.1 mg/dL (0.6-1.3); POTASSIUM 3.9 mmol/L (3.5-4.5); TOTAL PROTEIN 7.2 g/dL (6.4-8.9)
[2023-11-24] MEDS ORDERED: iohexoL-300 100 ML VIAL ONE ×2 (18:28→18:55)
[2023-11-24] MEDS: DEXTROSE 50% ABBOJECT 25 GM/50 ML SYRINGE IVP STA (18:30)
[2023-11-24] MEDS: iohexoL-300 100 ML VIAL IVP ONE (19:10)
--- NOTE | 2023-11-24 19:24 | CT Report ---
PROCEDURE: Angio Chest INDICATIONS: Dyspnea, PE protocol CONTRAST: 160ml [id number] TECHNIQUE: After the administration of intravenous contrast, 2 mm axial images were acquired from the pulmonary apices to the posterior costophrenic angles during the arterial phase. In addition, 1 mm lung kernel and 5 mm soft tissue kernel reconstructions were performed. 3-dimensional coronal oblique maximum int ensity projection (MIP) reformats, 8 mm axial MIP, and 5 mm coronal and sagittal MPR reformats were t hen performed through the thorax. For radiation dose reduction, the following was used: automated exp osure control, adjustment of mA and/or kV according to patient size. COMPARISON: None. FINDINGS: Image quality: Excellent. Large vessels: No filling defects within the opacified pulmonary arteries, to the lobar level, accoun ting for motion and contrast timing. No evidence of acute aortic syndrome or aortic aneurysm. Lungs and pleura: Dependent groundglass and centrilobular nodules with associated bronchial thickenin g. Mediastinum: Heart size is normal. No pericardial effusion. No large vessel abnormality. Borderline e nlarged mediastinal lymph nodes. For example, the 1.2 cm nodule between the left common carotid arter y and left subclavian artery (series 4, image 23). Chest wall and lower neck: Thyroid is unremarkable. Axillary and supraclavicular fossa adenopathy. Ex amples include: - 1.4 cm short axis left supraclavicular fossa node (series 4, image 5). -1.3 cm right axillary chain lymph node. -1.2 cm left level 1 axillary node (series 4, image 29). Bones: No aggressive osseous abnormality. Upper Abdomen: Unremarkable. IMPRESSION: No central pulmonary embolus. Dependent groundglass and centrilobular nodules, most consistent with an infectious or inflammatory b ronchiolitis versus aspiration. Lymphadenopathy of the supraclavicular fossa and axillary chain lymph nodes. Borderline adenopathy of the mediastinum. Together, findings are concerning for lymphoma. Reviewed by: Edmundo Hanna MD on 11/24/2023 7:22 PM PDT Approved by: Edmundo Hanna MD on 11/24/2023 7:22 PM PDT Station ID: [id number]
[2023-11-24] MEDS: AZITHROMYCIN INJ 500 MG in SODIUM CHLORIDE 0.9% 250 ML IV STA (19:46)
[2023-11-24] MEDS: cefTRIAXone 1 GM VIAL IVP STA (19:48)
[2023-11-24] MEDS ORDERED: ONDANSETRON 4 MG/2 ML VIAL IVP PRN (19:50)
[2023-11-24] MEDS ORDERED: ACETAMINOPHEN 325 MG TABLET PO PRN (19:50)
[2023-11-24] MEDS ORDERED: hydrALAZINE INJ 20 MG/ML VIAL IVP PRN (20:12)
--- NOTE | 2023-11-24 20:22 | HISTORY & PHYSICAL EXAMINATION ---
Chief Complaint - Chief Complaint Chief Complaint: SOB History of Present Illness - Admitted From Admitted From:: ED - History Obtained From Records Reviewed: EMR History obtained from: ED, patient, and Exam Limitations: tele medicine - History of Present Illness HPI Comment/Other: 58M c morbid obesity, T2DM on U500, hypertension, LEAH on cpap, BLE edema who presents to the ED reporting worsening SOB than baseline. Patient noted cough. no sore throat. no fever. no chest pain. no palpitation. no increase swelling ab ove baseline in extremities. He mentions SOB for 6 months. He has did not see a physician for the SOB until recently when it got worse. He states lying flat makes the SOB worse. He has no hx of asthma. He says recently he has been to urgent care and two ED visits and was prescribed breathing treatments, abx, and oral steroids. Most recently, patient was seen in [facility] ED this past Tuesday/Tuesday and was given steroids and breathing treatment and got better. He was discharged home with prescriptions. There is a question if patient continue medical management outpatient. Either case, patient returned to urgent care and was noted to be hypoxemic mid 80's on room air. He was brought into the ED by EMS and was given breathing treatment in en route. He was noted to be hypoxemic here in the ED mid 80s on room air. Currently patient is better on 2 L NC. CTA shows no infiltrate or PE. He is noted for signs of bronchitis. History - Past Medical History Cardiovascular: reports: Hypertension Respiratory: reports: Sleep apnea, CPAP use Neuro: reports: Peripheral neuropathy Endocrine/Autoimmune: reports: Type 2 diabetes GI: reports: None : reports: Benign prostate hypertrophy HEENT: reports: None Psych: reports: None Musculoskeletal: reports: Osteoarthritis Derm: reports: None MRSA Hx?: No - POLST Patient has POLST: No Meds/Allgy - Home Medications Home Medications: Ambulatory Orders Medication Instructions Recorded Confirmed Insulin Regular Human [NovoLIN R] 10 unit IVP ONCE 02/10/17 11/24/23 Sitagliptin Phos/Metformin HCl 1 each PO BID 02/10/17 11/24/23 [Janumet 50-500 mg Tablet] lisinopriL [Lisinopril] 20 mg PO DAILY 02/10/17 11/24/23 Albuterol Sulf [Ventolin Hfa 1 - 2 puffs INH Q4HR PRN #1 each 11/20/23 11/24/23 Inhaler] Furosemide [Lasix] 40 mg PO BID 11/24/23 11/24/23 Insulin Regular Human [Humulin R] 0 unit SUBQ 11/24/23 - Allergies Allergies/Adverse Reactions: Allergies Allergy/AdvReac Type Severity Reaction Status Date / Time No Known Drug Allergies Allergy Verified 11/24/23 17:56 Review of Systems - Constitutional Constitutional: denies: Fever - Ears, Nose & Throat Ears, Nose & Throat: reports: Nasal discharge - Cardiovascular Cariovascular: reports: Edema, Orthopnea. denies: Palpitations, Chest pain - Respiratory Respiratory: reports: Cough, Wheezing, Orthopnea Exam - Vital Signs Vital Signs: Vital Signs x48h Temp Pulse Resp BP Pulse Ox O2 Flow Rate 11/24/23 19:57 95 24 155/67 H 95 2 11/24/23 18:30 94 26 H 187/86 H 94 2 11/24/23 18:17 94 33 H 185/87 H 93 2 11/24/23 18:15 95 32 H 181/104 H 84 L 11/24/23 17:56 36.8 C 100 30 H 200/92 H 94 - Physical Exam General Appearance: positive: No acute distress Eyes Bilateral: positive: Normal inspection ENT: positive: ENT inspection nml Neck: positive: Nml inspection Respiratory: positive: Wheezes Cardiovascular: positive: Regular rate & rhythm Back: positive: Nml inspection Skin: positive: Color nml Neurologic/Psychiatric: positive: Oriented x3, CN's nml (2-12) Conclusion/Plan - Problem List (1) Acute hypoxemic respiratory failure Conclusion/Plan: 2/2 acute bronchitis. likely leah playing a role as well. given wheeze suspect component of hyper reactive airway. azithyromycin for infection. prednisone for reactive airway. breathing treatment for reactive airway. O2 support. (2) Bronchitis Conclusion/Plan: hx support resp infection. CTA does not indicate PNA. will treat with azithromycin. followup cultures. breathing treatment. (3) Diabetes mellitus with insulin therapy Conclusion/Plan: cover with u500. will order and ask pharm to assist with dosing and monitoring. followup am [id number]. (4) Hypertension Conclusion/Plan: managed. continue home lisinopril. monitor blood pressure with repeat vital checks (5) LEAH on CPAP Conclusion/Plan: managed. continue home cpap regimen (6) Peripheral edema Conclusion/Plan: baseline per patient. restart home Lasix but in iv format while inpatient (7) Anemia Conclusion/Plan: noted mild anemia. unclear reasoning. noted lymphadenopathy however in setting of acute resp infection. will treat bronchitis. followup anemia stds. occult stool std. ED sent flow cytometry for am followup - Lab Results Lab results reviewed: Yes Fish Bones: 11/24/23 18:04 11/24/23 18:04 - Diagnostic Imaging Results Diagnostic Imaging Results: positive: Final report reviewed Core Measures - Anticipated LOS I expect patient to be DC'd or transferred within 96 hours.: No - Issues Hospital Issues and Management Plan: The patient consented to receive this telemedicine service, which I performed via live two-way audiovisual equipment. The patient is at ([facility]) and I am physically in [facility]. A nurse assisted me in the visit. Full code SCDs, Heparin Inpatient Miguel Guan DO Internal Medicine [employer] - DVT/VTE - Prophylaxis VTE/DVT Device ordered at admit?: Yes Telemedicine Consult Details - Provider Location & Consult Time Telemedicine consultation conducted via videoconferencing?: Yes List names and roles of persons who participated in consult:: ED, patient, and Telemedicine provider location:: [facility] Time Telemedicine consult began:: 19:45 Time Telemedicine consult completed:: 20:40
[2023-11-24 21:00] LABS: CORONAVIRUS 229E-RESP PCR NOT DETECTED; CORONAVIRUS HKU1-RESP PCR NOT DETECTED; CORONAVIRUS NL63-RESP PCR NOT DETECTED; CORONAVIRUS OC43-RESP PCR NOT DETECTED; SARS-CoV-2 -RESP PCR PANEL NOT DETECTED
[2023-11-24 21:01] LABS: B. PARAPERTUSSIS- RESP PCR PAN NOT DETECTED; B. PERTUSSIS- RESP PCR PANEL NOT DETECTED; C. PNEUMONIAE- RESP PCR PANEL NOT DETECTED; HUMAN METAPNEUMOVIRUS DETECTED; INFLUENZA A- RESP PCR PANEL NOT DETECTED; INFLUENZA B - RESP PCR PANEL NOT DETECTED; M. PNEUMONIAE- RESP PCR PANEL NOT DETECTED; PARAINFLUENZA VIRUS 1 NOT DETECTED; PARAINFLUENZA VIRUS 2 NOT DETECTED; PARAINFLUENZA VIRUS 3 NOT DETECTED; PARAINFLUENZA VIRUS 4 NOT DETECTED; RHINOVIRUS/ENTEROVIRUS NOT DETECTED; RSV- RESP PCR PANEL NOT DETECTED
[2023-11-24] MEDS: FUROSEMIDE 40 MG/4 ML VIAL IVP SCH (22:32)
[2023-11-24] MEDS: HEPARIN 5,000 UNIT/ML VIAL SUBQ SCH (22:33)
[2023-11-24] MEDS: SODIUM CHLORIDE FLUSH 0.9% 10 ML SYRINGE IVP PRN (22:34)
[2023-11-24] MEDS: IPRATROPIUM/ALBUTEROL 3 ML NEB INH SCH (23:14)
[2023-11-24] MEDS: BUDESONIDE 0.5 MG/2 ML NEB INH SCH (23:14)
[2023-11-25] MEDS: SODIUM CHLORIDE FLUSH 0.9% 10 ML SYRINGE IVP SCH (01:06)
[2023-11-25 06:00] LABS: HCT - HEMATOCRIT 36.5 % (42.0-52.0); HGB - HEMOGLOBIN 11.2 g/dL (14.0-18.0); MEAN CORPUSCULAR HEMOGLOBIN 25.9 pg (27.0-31.0); MEAN CORPUSCULAR HGB CONC 30.7 g/dL (32.0-36.0); MEAN CORPUSCULAR VOLUME 84.5 fL (80.0-94.0); MEAN PLATELET VOLUME 9.4 fL (7.4-11.4); RED BLOOD COUNT 4.32 10^6/uL (4.70-6.10); RED CELL DISTRIBUTION WIDTH 15.9 % (12.0-15.0); WHITE BLOOD COUNT 5.8 x10^3/uL (4.8-10.8)
[2023-11-25 06:23] LABS: % IRON SATURATION 8 % (20-50); ALBUMIN 3.6 g/dL (3.2-5.5); ALBUMIN/GLOBULIN RATIO 0.9 (1.0-2.2); ALKALINE PHOSPHATASE 125 IU/L (42-121); ALT ALANINE AMINOTRANSFERASE 120 IU/L (10-60); AST ASPARTATE AMINOTRANSFERASE 82 IU/L (10-42); BILIRUBIN,TOTAL 0.3 mg/dL (0.2-1.0); BUN - BLOOD UREA NITROGEN 26 mg/dL (6-20); CALCIUM 8.8 mg/dL (8.5-10.3); CARBON DIOXIDE - CO2 31 mmol/L (21-32); CHLORIDE 95 mmol/L (101-111); CHOL/HDL RATIO 2.7 (<5.0); CHOLESTEROL 118 mg/dL; CREATININE 1.2 mg/dL (0.6-1.3); GFR - MDRD 76 (>89); GLUCOSE 271 mg/dL (74-104); HDL CHOLESTEROL 44 mg/dL; IRON 17 ug/dL (50-212); LDL CHOLESTEROL,CALCULATED 57 mg/dL; LDL/HDL RATIO 1.3 (<3.6); MAGNESIUM 1.8 mg/dL (1.7-2.3); PHOSPHORUS 5.6 mg/dL (2.5-5.0); POTASSIUM 5.3 mmol/L (3.5-4.5); SODIUM 132 mmol/L (135-145); TOTAL IRON BINDING CAPACITY 218 ug/dL (250-450); TOTAL PROTEIN 7.4 g/dL (6.4-8.9); TRANSFERRIN 156 mg/dL (203-362); TRIGLYCERIDES 86 mg/dL (48-352); VLDL CHOLESTEROL 17 mg/dL
[2023-11-25 06:32] LABS: THYROID STIMULATING HORMONE 1.82 uIU/mL (0.34-5.60)
[2023-11-25] MEDS: lisinopriL 20 MG TABLET PO SCH (08:33)
[2023-11-25] MEDS: INSULIN LISPRO 300 UNIT/3 ML PEN SUBQ SCH ×3 (08:33→17:10)
[2023-11-25] MEDS: FERROUS SULFATE 325 MG TABLET PO SCH (08:33)
[2023-11-25] MEDS: predniSONE 20 MG TABLET PO SCH (08:33)
[2023-11-25 09:09] LABS: ESTIMATED AVERAGE GLUCOSE 243 mg/dL (70-100); HEMOGLOBIN A1c% 10.1 % (4.27-6.07)
[2023-11-25 10:18] LABS: CALCIUM 8.7 mg/dL (8.5-10.3); CREATININE 1.3 mg/dL (0.6-1.3); POTASSIUM 5.3 mmol/L (3.5-4.5)
[2023-11-25] MEDS: INSULIN REGULAR, HUMAN 300 UNIT/3 ML PEN SUBQ SCH (11:24)
[2023-11-25] MEDS ORDERED: INSULIN REGULAR, HUMAN 300 UNIT/3 ML PEN SUBQ SCH ×2 (12:00→17:00)
--- NOTE | 2023-11-25 12:04 | PHARMACY PROGRESS NOTE ---
- Best Possible Medication History Admit Date and Time: 11/24/231949 Processed by: Nursing Medications reviewed in ED?: Yes As the person ultimately responsible for medication therapy, providers are able to order a medication from an existing home medication list in [facility] via the "Reconcile Routine" prior to Confirmation of that medication by customer support associate. Such practice is discouraged except when the physician, in their clinical judgment, deems that a medical need exists for a medication without regard to previous use.
[2023-11-25] MEDS: cefTRIAXone 1 GM in SODIUM CHLORIDE 0.9% MINIBAG 100 ML IV SCH (12:49)
[2023-11-25] MEDS: FUROSEMIDE 20 MG/2 ML VIAL IVP SCH (15:01)
--- NOTE | 2023-11-25 17:59 | PROVIDER PROGRESS NOTE ---
Subjective - Prog Note Date Prog Note Date: 11/25/23 Prog Note Time: 17:56 - Subjective Pt reports feeling: Improved Subjective: Presented to the emergency department with symptoms of cough chest pain and worsening shortness of breath for about a week. He had been seen at walk-in clinic several times. He was not running a fever did not have any sore throat did not have any chest pain. He does not have any history of asthma or interstitial lung disease. He has not been on any breathing medications. He has a very long history of diabetes which is poorly controlled. He relates to me that his last A1c in the outpatient environment was 9.7 about 3 months ago. Due to worsening symptoms on the day prior to admission he presented to urgent care and was noted to be hypoxic in the mid 80s. He was therefore transported here via EMS. CTA was negative for infiltrate or PE but there is extensive bronchial inflammation. Overnight after treatment with IV antibiotics and steroids he is improving markedly feels much better. Although not back to normal. Current Medications - Current Medications Current Medications: Medications Ceftriaxone Sodium 1 gm/ (Sodium Chloride) 100 mls @ 200 mls/hr IV DAILY RIAT Stop: 11/26/23 09:00 Last Admin: 11/25/23 15:47 Dose: Infused Insulin Human Regular (Insulin Regular, Human 300 Unit/3 Ml Pen) 140 unit SUBQ QDBREAKFAST [facility] Last Admin: 11/25/23 11:24 Dose: Not Given Prednisone (Prednisone 20 Mg Tablet) 40 mg PO DAILY RITA Stop: 11/28/23 09:01 Last Admin: 11/25/23 08:33 Dose: 40 mg Ferrous Sulfate (Ferrous Sulfate 325 Mg Tablet) 325 mg PO BIDWM [facility] Last Admin: 11/25/23 17:10 Dose: 325 mg Azithromycin 500 mg/ Sodium (Chloride) 250 mls @ 250 mls/hr IV 2000 RITA Stop: 11/26/23 20:59 Furosemide (Furosemide 20 Mg/2 Ml Vial) 20 mg IVP BIDDIURETIC [facility] Last Admin: 11/25/23 15:01 Dose: 20 mg Heparin Sodium (Porcine) (Heparin 5,000 Unit/Ml Vial) 5,000 unit SUBQ BID RITA Last Admin: 11/25/23 08:33 Dose: 5,000 unit Hydralazine HCl (Hydralazine Inj 20 Mg/Ml Vial) 10 mg IVP Q6HR PRN PRN Reason: sbp>160 Insulin Glargine-yfgn (Insulin Glargine-Yfgn 300 Unit/3 Ml Pen) 50 unit SUBQ BID RITA Insulin Human Lispro (Insulin Lispro 300 Unit/3 Ml Pen) 0 unit SUBQ TIDWM [facility]; Protocol Last Admin: 11/25/23 17:08 Dose: 11 unit Insulin Human Lispro (Insulin Lispro 300 Unit/3 Ml Pen) 20 unit SUBQ TIDWM [facility]; Protocol Last Admin: 11/25/23 17:09 Dose: 20 unit Insulin Human Lispro (Insulin Lispro 300 Unit/3 Ml Pen) 1 - 9 unit SUBQ 0800,1200,1700,2100 [facility]; Protocol Last Admin: 11/25/23 17:10 Dose: Not Given Lisinopril (Lisinopril 20 Mg Tablet) 20 mg PO DAILY [facility] Last Admin: 11/25/23 08:33 Dose: 20 mg Acetaminophen (Acetaminophen 325 Mg Tablet) 650 mg PO Q4HR PRN PRN Reason: Pain 1 to 4, or Fever Albuterol/Ipratropium (Ipratropium/Albuterol 3 Ml Neb) 3 ml INH Q6HR RITA Last Admin: 11/25/23 17:46 Dose: 3 ml Budesonide (Budesonide 0.5 Mg/2 Ml Neb) 0.5 mg INH RTBID RITA Last Admin: 11/25/23 17:46 Dose: 0.5 mg Objective - Vital Signs/Intake & Output Vital Signs: Vital Signs x48h Temp Pulse Pulse Resp BP BP Pulse Ox 11/25/23 17:49 79 18 11/25/23 16:36 36.8 C 92 18 153/80 H 96 11/25/23 12:32 36.6 C 90 20 157/84 H 95 11/25/23 11:23 79 16 O2 Flow Rate 11/25/23 17:49 2 11/25/23 16:36 4 11/25/23 12:32 4 11/25/23 11:23 4 Intake & Output: Intake & Output 11/22/23 11/23/23 11/24/23 11/25/23 23:59 23:59 23:59 23:59 Intake Total 350 1240 Balance 350 1240 - Objective General Appearance: positive: No acute distress Eyes Bilateral: positive: Normal inspection ENT: positive: ENT inspection nml Neck: positive: Nml inspection Respiratory: positive: Chest non-tender, Rhonchi (right side) Cardiovascular: positive: Regular rate & rhythm Abdomen: positive: Non-tender Back: positive: Nml inspection Skin: positive: Skin rash (thickening of the skin of the thoracic area of the back. Lower extremities with moderate anterior tibial skin thickening) Extremities: positive: Pedal edema (2+ at the anterior tibial area) Neurologic/Psychiatric: positive: Oriented x3 - Lab Results Fish Bones: 11/25/23 05:55 11/25/23 09:59 Other Labs: Lab Results x24hrs 11/25/23 11/25/23 11/25/23 Range/Units 11:22 09:59 07:55 WBC (4.8-10.8) x10^3/uL RBC (4.70-6.10) 10^6/uL Hgb (14.0-18.0) g/dL Hct (42.0-52.0) % MCV (80.0-94.0) fL MCH (27.0-31.0) pg MCHC (32.0-36.0) g/dL RDW (12.0-15.0) % Plt Count (130-450) 10^3/uL MPV (7.4-11.4) fL Neut # (Auto) (1.5-6.6) 10^3/uL Lymph # (Auto) (1.5-3.5) 10^3/uL Caldwell # (Auto) (0.0-1.0) 10^3/uL Eos # (Auto) (0.0-0.7) 10^3/uL Baso # (Auto) (0.0-0.1) 10^3/uL Absolute Nucleated RBC x10^3/uL Nucleated RBC % /100WBC Sodium 129 L (135-145) mmol/L Potassium 5.3 H (3.5-4.5) mmol/L Chloride 92 L (101-111) mmol/L Carbon Dioxide 29 (21-32) mmol/L Anion Gap 8.0 (6-13) BUN 30 H (6-20) mg/dL Creatinine 1.3 (0.6-1.3) mg/dL Estimated GFR (MDRD) 69 L (>89) Glucose 427 H (74-104) mg/dL POC Whole Bld Glucose 380 H 304 H (70 - 100) mg/dL Estimat Average Glucose (70-100) mg/dL Hemoglobin A1c % (4.27-6.07) % Lactic Acid (0.5-2.2) mmol/L Calcium 8.7 (8.5-10.3) mg/dL Phosphorus (2.5-5.0) mg/dL Magnesium (1.7-2.3) mg/dL Iron (50-212) ug/dL TIBC (250-450) ug/dL % Saturation (20-50) % Transferrin (203-362) mg/dL Total Bilirubin (0.2-1.0) mg/dL AST (10-42) IU/L ALT (10-60) IU/L Alkaline Phosphatase (42-121) IU/L B-Natriuretic Peptide (5-100) pg/mL Total Protein (6.4-8.9) g/dL Albumin (3.2-5.5) g/dL Globulin (2.1-4.2) g/dL Albumin/Globulin Ratio (1.0-2.2) Triglycerides (48-352) mg/dL Cholesterol ( - 200) mg/dL LDL Cholesterol, Calc ( - 129) mg/dL VLDL Cholesterol mg/dL HDL Cholesterol (60 - ) mg/dL LDL/HDL Ratio (<3.6) Cholesterol/HDL Ratio (<5.0) Vitamin B12 (180-914) pg/mL Folate (5.90 - >24.8) ng/mL TSH (0.34-5.60) uIU/mL Nasal Adenovirus (PCR) Nasal B. parapertussis DNA (PCR) Nasal Coronavir 229E PCR Nasal Coronavir HKU1 PCR Nasal Coronavir NL63 PCR Nasal Coronavir OC43 PCR Nasal Enterovir/Rhinovir PCR Nasal Influenza B PCR Nasal Influenza A PCR Nasal Parainfluen 1 PCR Nasal Parainfluen 2 PCR Nasal Parainfluen 3 PCR Nasal Parainfluen 4 PCR Nasal RSV (PCR) Nasal B.pertussis DNA PCR Nasal C.pneumoniae (PCR) Martín Human Metapneumo PCR Nasal M.pneumoniae (PCR) Nasal SARS-CoV-2 (PCR) 11/25/23 11/25/23 11/25/23 Range/Units 05:55 05:55 05:55 WBC (4.8-10.8) x10^3/uL RBC (4.70-6.10) 10^6/uL Hgb (14.0-18.0) g/dL Hct (42.0-52.0) % MCV (80.0-94.0) fL MCH (27.0-31.0) pg MCHC (32.0-36.0) g/dL RDW (12.0-15.0) % Plt Count (130-450) 10^3/uL MPV (7.4-11.4) fL Neut # (Auto) (1.5-6.6) 10^3/uL Lymph # (Auto) (1.5-3.5) 10^3/uL Caldwell # (Auto) (0.0-1.0) 10^3/uL Eos # (Auto) (0.0-0.7) 10^3/uL Baso # (Auto) (0.0-0.1) 10^3/uL Absolute Nucleated RBC x10^3/uL Nucleated RBC % /100WBC Sodium 132 L (135-145) mmol/L Potassium 5.3 H (3.5-4.5) mmol/L Chloride 95 L (101-111) mmol/L Carbon Dioxide 31 (21-32) mmol/L Anion Gap 6.0 (6-13) BUN 26 H (6-20) mg/dL Creatinine 1.2 (0.6-1.3) mg/dL Estimated GFR (MDRD) 76 L (>89) Glucose 271 H (74-104) mg/dL POC Whole Bld Glucose (70 - 100) mg/dL Estimat Average Glucose 243 H (70-100) mg/dL Hemoglobin A1c % 10.1 H (4.27-6.07) % Lactic Acid (0.5-2.2) mmol/L Calcium 8.8 (8.5-10.3) mg/dL Phosphorus 5.6 H (2.5-5.0) mg/dL Magnesium 1.8 (1.7-2.3) mg/dL Iron 17 L (50-212) ug/dL TIBC 218 L (250-450) ug/dL % Saturation 8 L (20-50) % Transferrin 156 L (203-362) mg/dL Total Bilirubin 0.3 (0.2-1.0) mg/dL AST 82 H (10-42) IU/L ALT 120 H (10-60) IU/L Alkaline Phosphatase 125 H (42-121) IU/L B-Natriuretic Peptide 29 (5-100) pg/mL Total Protein 7.4 (6.4-8.9) g/dL Albumin 3.6 (3.2-5.5) g/dL Globulin 3.8 (2.1-4.2) g/dL Albumin/Globulin Ratio 0.9 L (1.0-2.2) Triglycerides 86 (48-352) mg/dL Cholesterol 118 ( - 200) mg/dL LDL Cholesterol, Calc 57 ( - 129) mg/dL VLDL Cholesterol 17 mg/dL HDL Cholesterol 44 L (60 - ) mg/dL LDL/HDL Ratio 1.3 (<3.6) Cholesterol/HDL Ratio 2.7 (<5.0) Vitamin B12 566 (180-914) pg/mL Folate 15.9 (5.90 - >24.8) ng/mL TSH 1.82 (0.34-5.60) uIU/mL Nasal Adenovirus (PCR) Nasal B. parapertussis DNA (PCR) Nasal Coronavir 229E PCR Nasal Coronavir HKU1 PCR Nasal Coronavir NL63 PCR Nasal Coronavir OC43 PCR Nasal Enterovir/Rhinovir PCR Nasal Influenza B PCR Nasal Influenza A PCR Nasal Parainfluen 1 PCR Nasal Parainfluen 2 PCR Nasal Parainfluen 3 PCR Nasal Parainfluen 4 PCR Nasal RSV (PCR) Nasal B.pertussis DNA PCR Nasal C.pneumoniae (PCR) Martín Human Metapneumo PCR Nasal M.pneumoniae (PCR) Nasal SARS-CoV-2 (PCR) 11/25/23 11/24/23 11/24/23 Range/Units 05:55 20:12 19:56 WBC 5.8 (4.8-10.8) x10^3/uL RBC 4.32 L (4.70-6.10) 10^6/uL Hgb 11.2 L (14.0-18.0) g/dL Hct 36.5 L (42.0-52.0) % MCV 84.5 (80.0-94.0) fL MCH 25.9 L (27.0-31.0) pg MCHC 30.7 L (32.0-36.0) g/dL RDW 15.9 H (12.0-15.0) % Plt Count 246 (130-450) 10^3/uL MPV 9.4 (7.4-11.4) fL Neut # (Auto) (1.5-6.6) 10^3/uL Lymph # (Auto) (1.5-3.5) 10^3/uL Caldwell # (Auto) (0.0-1.0) 10^3/uL Eos # (Auto) (0.0-0.7) 10^3/uL Baso # (Auto) (0.0-0.1) 10^3/uL Absolute Nucleated RBC x10^3/uL Nucleated RBC % /100WBC Sodium (135-145) mmol/L Potassium (3.5-4.5) mmol/L Chloride (101-111) mmol/L Carbon Dioxide (21-32) mmol/L Anion Gap (6-13) BUN (6-20) mg/dL Creatinine (0.6-1.3) mg/dL Estimated GFR (MDRD) (>89) Glucose (74-104) mg/dL POC Whole Bld Glucose 98 (70 - 100) mg/dL Estimat Average Glucose (70-100) mg/dL Hemoglobin A1c % (4.27-6.07) % Lactic Acid (0.5-2.2) mmol/L Calcium (8.5-10.3) mg/dL Phosphorus (2.5-5.0) mg/dL Magnesium (1.7-2.3) mg/dL Iron (50-212) ug/dL TIBC (250-450) ug/dL % Saturation (20-50) % Transferrin (203-362) mg/dL Total Bilirubin (0.2-1.0) mg/dL AST (10-42) IU/L ALT (10-60) IU/L Alkaline Phosphatase (42-121) IU/L B-Natriuretic Peptide (5-100) pg/mL Total Protein (6.4-8.9) g/dL Albumin (3.2-5.5) g/dL Globulin (2.1-4.2) g/dL Albumin/Globulin Ratio (1.0-2.2) Triglycerides (48-352) mg/dL Cholesterol ( - 200) mg/dL LDL Cholesterol, Calc ( - 129) mg/dL VLDL Cholesterol mg/dL HDL Cholesterol (60 - ) mg/dL LDL/HDL Ratio (<3.6) Cholesterol/HDL Ratio (<5.0) Vitamin B12 (180-914) pg/mL Folate (5.90 - >24.8) ng/mL TSH (0.34-5.60) uIU/mL Nasal Adenovirus (PCR) NOT DETECTED Nasal B. parapertussis DNA (PCR) NOT DETECTED Nasal Coronavir 229E PCR NOT DETECTED Nasal Coronavir HKU1 PCR NOT DETECTED Nasal Coronavir NL63 PCR NOT DETECTED Nasal Coronavir OC43 PCR NOT DETECTED Nasal Enterovir/Rhinovir PCR NOT DETECTED Nasal Influenza B PCR NOT DETECTED Nasal Influenza A PCR NOT DETECTED Nasal Parainfluen 1 PCR NOT DETECTED Nasal Parainfluen 2 PCR NOT DETECTED Nasal Parainfluen 3 PCR NOT DETECTED Nasal Parainfluen 4 PCR NOT DETECTED Nasal RSV (PCR) NOT DETECTED Nasal B.pertussis DNA PCR NOT DETECTED Nasal C.pneumoniae (PCR) NOT DETECTED Martín Human Metapneumo PCR DETECTED A Nasal M.pneumoniae (PCR) NOT DETECTED Nasal SARS-CoV-2 (PCR) NOT DETECTED 11/24/23 11/24/23 11/24/23 Range/Units 19:49 18:04 18:04 WBC (4.8-10.8) x10^3/uL RBC (4.70-6.10) 10^6/uL Hgb (14.0-18.0) g/dL Hct (42.0-52.0) % MCV (80.0-94.0) fL MCH (27.0-31.0) pg MCHC (32.0-36.0) g/dL RDW (12.0-15.0) % Plt Count (130-450) 10^3/uL MPV (7.4-11.4) fL Neut # (Auto) (1.5-6.6) 10^3/uL Lymph # (Auto) (1.5-3.5) 10^3/uL Caldwell # (Auto) (0.0-1.0) 10^3/uL Eos # (Auto) (0.0-0.7) 10^3/uL Baso # (Auto) (0.0-0.1) 10^3/uL Absolute Nucleated RBC x10^3/uL Nucleated RBC % /100WBC Sodium 135 (135-145) mmol/L Potassium 3.9 (3.5-4.5) mmol/L Chloride 95 L (101-111) mmol/L Carbon Dioxide 34 H (21-32) mmol/L Anion Gap 6.0 (6-13) BUN 19 (6-20) mg/dL Creatinine 1.1 (0.6-1.3) mg/dL Estimated GFR (MDRD) 84 L (>89) Glucose 56 L* (74-104) mg/dL POC Whole Bld Glucose (70 - 100) mg/dL Estimat Average Glucose (70-100) mg/dL Hemoglobin A1c % (4.27-6.07) % Lactic Acid 1.0 (0.5-2.2) mmol/L Calcium 9.3 (8.5-10.3) mg/dL Phosphorus (2.5-5.0) mg/dL Magnesium (1.7-2.3) mg/dL Iron (50-212) ug/dL TIBC (250-450) ug/dL % Saturation (20-50) % Transferrin (203-362) mg/dL Total Bilirubin 0.4 (0.2-1.0) mg/dL AST 112 H (10-42) IU/L ALT 139 H (10-60) IU/L Alkaline Phosphatase 118 (42-121) IU/L B-Natriuretic Peptide 25 (5-100) pg/mL Total Protein 7.2 (6.4-8.9) g/dL Albumin 3.9 (3.2-5.5) g/dL Globulin 3.3 (2.1-4.2) g/dL Albumin/Globulin Ratio 1.2 (1.0-2.2) Triglycerides (48-352) mg/dL Cholesterol ( - 200) mg/dL LDL Cholesterol, Calc ( - 129) mg/dL VLDL Cholesterol mg/dL HDL Cholesterol (60 - ) mg/dL LDL/HDL Ratio (<3.6) Cholesterol/HDL Ratio (<5.0) Vitamin B12 (180-914) pg/mL Folate (5.90 - >24.8) ng/mL TSH (0.34-5.60) uIU/mL Nasal Adenovirus (PCR) Nasal B. parapertussis DNA (PCR) Nasal Coronavir 229E PCR Nasal Coronavir HKU1 PCR Nasal Coronavir NL63 PCR Nasal Coronavir OC43 PCR Nasal Enterovir/Rhinovir PCR Nasal Influenza B PCR Nasal Influenza A PCR Nasal Parainfluen 1 PCR Nasal Parainfluen 2 PCR Nasal Parainfluen 3 PCR Nasal Parainfluen 4 PCR Nasal RSV (PCR) Nasal B.pertussis DNA PCR Nasal C.pneumoniae (PCR) Martín Human Metapneumo PCR Nasal M.pneumoniae (PCR) Nasal SARS-CoV-2 (PCR) 11/24/23 Range/Units 18:04 WBC 6.4 (4.8-10.8) x10^3/uL RBC 4.44 L (4.70-6.10) 10^6/uL Hgb 11.6 L (14.0-18.0) g/dL Hct 37.7 L (42.0-52.0) % MCV 84.9 (80.0-94.0) fL MCH 26.1 L (27.0-31.0) pg MCHC 30.8 L (32.0-36.0) g/dL RDW 15.7 H (12.0-15.0) % Plt Count 261 (130-450) 10^3/uL MPV 10.1 (7.4-11.4) fL Neut # (Auto) 4.3 (1.5-6.6) 10^3/uL Lymph # (Auto) 1.6 (1.5-3.5) 10^3/uL Caldwell # (Auto) 0.4 (0.0-1.0) 10^3/uL Eos # (Auto) 0.1 (0.0-0.7) 10^3/uL Baso # (Auto) 0.0 (0.0-0.1) 10^3/uL Absolute Nucleated RBC 0.00 x10^3/uL Nucleated RBC % 0.0 /100WBC Sodium (135-145) mmol/L Potassium (3.5-4.5) mmol/L Chloride (101-111) mmol/L Carbon Dioxide (21-32) mmol/L Anion Gap (6-13) BUN (6-20) mg/dL Creatinine (0.6-1.3) mg/dL Estimated GFR (MDRD) (>89) Glucose (74-104) mg/dL POC Whole Bld Glucose (70 - 100) mg/dL Estimat Average Glucose (70-100) mg/dL Hemoglobin A1c % (4.27-6.07) % Lactic Acid (0.5-2.2) mmol/L Calcium (8.5-10.3) mg/dL Phosphorus (2.5-5.0) mg/dL Magnesium (1.7-2.3) mg/dL Iron (50-212) ug/dL TIBC (250-450) ug/dL % Saturation (20-50) % Transferrin (203-362) mg/dL Total Bilirubin (0.2-1.0) mg/dL AST (10-42) IU/L ALT (10-60) IU/L Alkaline Phosphatase (42-121) IU/L B-Natriuretic Peptide (5-100) pg/mL Total Protein (6.4-8.9) g/dL Albumin (3.2-5.5) g/dL Globulin (2.1-4.2) g/dL Albumin/Globulin Ratio (1.0-2.2) Triglycerides (48-352) mg/dL Cholesterol ( - 200) mg/dL LDL Cholesterol, Calc ( - 129) mg/dL VLDL Cholesterol mg/dL HDL Cholesterol (60 - ) mg/dL LDL/HDL Ratio (<3.6) Cholesterol/HDL Ratio (<5.0) Vitamin B12 (180-914) pg/mL Folate (5.90 - >24.8) ng/mL TSH (0.34-5.60) uIU/mL Nasal Adenovirus (PCR) Nasal B. parapertussis DNA (PCR) Nasal Coronavir 229E PCR Nasal Coronavir HKU1 PCR Nasal Coronavir NL63 PCR Nasal Coronavir OC43 PCR Nasal Enterovir/Rhinovir PCR Nasal Influenza B PCR Nasal Influenza A PCR Nasal Parainfluen 1 PCR Nasal Parainfluen 2 PCR Nasal Parainfluen 3 PCR Nasal Parainfluen 4 PCR Nasal RSV (PCR) Nasal B.pertussis DNA PCR Nasal C.pneumoniae (PCR) Martín Human Metapneumo PCR Nasal M.pneumoniae (PCR) Nasal SARS-CoV-2 (PCR) - Diagnostic Imaging Diagnostic Imaging Results: positive: Final report reviewed Diagnostic Imaging Comments: No PE bronchiolitis There is mention made of LAD in the supraclavicular fossa nad anterior cervical LN chains. ABX Reporting Has patient been on IV antibiotics over the past 48 hours?: Yes Sepsis Event Note (H) - Evaluation Current Stage of Sepsis: Ruled out Possible source of Sepsis: positive: Pulmonary Assessment/Plan - Problem List (1) Acute hypoxemic respiratory failure Impression: Bronchiolitis seen on CTA. Patient with coarse breath sounds on exam. He has been treated with antibiotics and steroids at this point. We are supporting him with oxygen therapy. (2) Bronchiolitis Impression: Seen on CTA. There is no infiltrate on CTA. We are treating him with Rocephin, azithromycin, prednisone.He has been supported with supplemental oxygen. (3) Diabetes mellitus with insulin therapy Impression: His blood sugars have been extremely high since he has been here. His CGM is reading too high to quantify. He has had blood sugars in the 400s here today. We have adjusted his insulin appropriately and will continue to monitor. He has had multiple interventions for his blood sugar today. Highest glucose was 445 and is being treated with insulin. Today he has gotten 31 units of correction lispro. He has has gotten 20 units with each lunch and dinner. He is also getting Semglee 50 units twice daily. Hemoglobin A1c is at 10.1%. (4) Lymphadenopathy Impression: Seen incidentally on CTA of the chest. Flow cytometry has been ordered and sent. We will continue to follow for this result. (5) Hypertension Impression: He is on lisinopril 20 mg at home. He has been mildly hypertensive here today with systolic blood pressures mainly in the 150s. He has as needed hydralazine orderedFor blood pressures greater than 160. He has not required any of this medication.. (6) LEAH on CPAP Impression: Possible contributor to current state of illness. He is a compliant CPAP wear although he states his current appliance is not fitting him well. He has his home CPAP and will use that here at the hospital. (7) Iron deficiency anemia Impression: Noted on admission to have low H&H at 11.2/36.5. Follow-up iron studies show iron level low at 17, TIBC 218, transferrin 156. We have ordered p.o. iron. His last colonoscopy was 3 to 4 years ago and he states that it was negative for any polyps he is on a 10-year repeat cycle. (8) Hyperkalemia Impression: Hyperkalemia at 5.3. Probably due to his hyperglycemia. We are continuing to give him insulin to try to bring his blood sugars under control and will recheck potassium in the a.m. (9) Hyponatremia Impression: Hyponatremia. 132 this morning, repeat at 129. Also probably related to his hyperglycemia. Again we are aggressively treating his blood sugar.
[2023-11-25] MEDS: AZITHROMYCIN INJ 500 MG in SODIUM CHLORIDE 0.9% 250 ML IV SCH (20:49)
[2023-11-25] MEDS: INSULIN GLARGINE-YFGN 300 UNIT/3 ML PEN SUBQ SCH (21:59)
[2023-11-26] MEDS: guaiFENesin 600 MG TABLET PO SCH (08:27)
[2023-11-26 08:33] LABS: CREATININE 1.2 mg/dL (0.6-1.3); POTASSIUM 4.4 mmol/L (3.5-4.5)
--- NOTE | 2023-11-26 08:34 | PROVIDER PROGRESS NOTE ---
Subjective - Prog Note Date Prog Note Date: 11/26/23 Prog Note Time: 08:34 - Subjective Subjective: Continues to experience improvement with treatment. He notes that the edema in his legs has decreased. He has been able to walk in the room on his oxygen therapy and feels much less winded and more steady on his feet. Current Medications - Current Medications Current Medications: Medications Insulin Glargine-yfgn (Insulin Glargine-Yfgn 300 Unit/3 Ml Pen) 50 unit SUBQ BID [facility] Last Admin: 11/26/23 08:19 Dose: 50 unit Acetaminophen (Acetaminophen 325 Mg Tablet) 650 mg PO Q4HR PRN PRN Reason: Pain 1 to 4, or Fever Albuterol/Ipratropium (Ipratropium/Albuterol 3 Ml Neb) 3 ml INH Q6HR [facility] Last Admin: 11/26/23 11:17 Dose: 3 ml Azithromycin 500 mg/ Sodium (Chloride) 250 mls @ 250 mls/hr IV 2000 [facility] Stop: 11/26/23 20:59 Last Admin: 11/26/23 00:03 Dose: Infused Budesonide (Budesonide 0.5 Mg/2 Ml Neb) 0.5 mg INH RTBID [facility] Last Admin: 11/26/23 07:08 Dose: 0.5 mg Ceftriaxone Sodium 1 gm/ (Sodium Chloride) 100 mls @ 200 mls/hr IV DAILY [facility] Stop: 11/28/23 09:29 Ferrous Sulfate (Ferrous Sulfate 325 Mg Tablet) 325 mg PO BIDWM [facility] Last Admin: 11/26/23 08:10 Dose: 325 mg Furosemide (Furosemide 20 Mg/2 Ml Vial) 20 mg IVP BIDDIURETIC [facility] Last Admin: 11/26/23 14:40 Dose: 20 mg Guaifenesin (Guaifenesin 600 Mg Tablet) 600 mg PO BID [facility] Last Admin: 11/26/23 08:27 Dose: 600 mg Heparin Sodium (Porcine) (Heparin 5,000 Unit/Ml Vial) 5,000 unit SUBQ BID [facility] Last Admin: 11/26/23 08:19 Dose: 5,000 unit Insulin Human Lispro (Insulin Lispro 300 Unit/3 Ml Pen) 0 unit SUBQ TIDWM [facility]; Protocol Last Admin: 11/26/23 11:39 Dose: 9 unit Insulin Human Lispro (Insulin Lispro 300 Unit/3 Ml Pen) 20 unit SUBQ TIDWM [facility]; Protocol Last Admin: 11/26/23 11:38 Dose: 20 unit Lisinopril (Lisinopril 20 Mg Tablet) 20 mg PO DAILY [facility] Last Admin: 11/26/23 08:10 Dose: 20 mg Ondansetron HCl (Ondansetron 4 Mg/2 Ml Vial) 4 mg IVP Q6HR PRN PRN Reason: Nausea / Vomiting Prednisone (Prednisone 20 Mg Tablet) 40 mg PO DAILY [facility] Stop: 11/28/23 09:01 Last Admin: 11/26/23 08:10 Dose: 40 mg Objective - Vital Signs/Intake & Output Vital Signs: Vital Signs x48h Temp Pulse Pulse Resp BP Pulse Ox O2 Flow Rate 11/26/23 08:12 36.7 C 82 18 135/70 H 94 2 11/26/23 07:13 88 20 2 Intake & Output: Intake & Output 11/23/23 11/24/23 11/25/23 11/26/23 23:59 23:59 23:59 23:59 Intake Total 350 1240 250 Output Total 0 Balance 350 1240 250 - Objective General Appearance: positive: No acute distress Eyes Bilateral: positive: Normal inspection ENT: positive: ENT inspection nml Neck: positive: Nml inspection Respiratory: positive: Chest non-tender, Wheezes (bilateral wheeze), Rhonchi (bilateral) Cardiovascular: positive: Regular rate & rhythm Abdomen: positive: Non-tender Back: positive: Nml inspection Skin: positive: Skin rash (as noted previously, thickening of the skin of the posterior thorax.) Extremities: positive: Pedal edema Neurologic/Psychiatric: positive: Oriented x3, CN's nml (2-12), Motor nml - Lab Results Fish Bones: 11/25/23 05:55 11/26/23 07:59 Other Labs: Lab Results x24hrs 11/26/23 11/26/23 11/25/23 Range/Units 07:59 07:46 20:43 Sodium 133 L (135-145) mmol/L Potassium 4.4 (3.5-4.5) mmol/L Chloride 94 L (101-111) mmol/L Carbon Dioxide 34 H (21-32) mmol/L Anion Gap 5.0 L (6-13) BUN 30 H (6-20) mg/dL Creatinine 1.2 (0.6-1.3) mg/dL Estimated GFR (MDRD) 76 L (>89) Glucose 362 H (74-104) mg/dL POC Whole Bld Glucose 327 H 412 H (70 - 100) mg/dL Estimat Average Glucose (70-100) mg/dL Hemoglobin A1c % (4.27-6.07) % Calcium 9.0 (8.5-10.3) mg/dL 11/25/23 11/25/23 11/25/23 Range/Units 16:42 11:22 09:59 Sodium 129 L (135-145) mmol/L Potassium 5.3 H (3.5-4.5) mmol/L Chloride 92 L (101-111) mmol/L Carbon Dioxide 29 (21-32) mmol/L Anion Gap 8.0 (6-13) BUN 30 H (6-20) mg/dL Creatinine 1.3 (0.6-1.3) mg/dL Estimated GFR (MDRD) 69 L (>89) Glucose 427 H (74-104) mg/dL POC Whole Bld Glucose 445 H 380 H (70 - 100) mg/dL Estimat Average Glucose (70-100) mg/dL Hemoglobin A1c % (4.27-6.07) % Calcium 8.7 (8.5-10.3) mg/dL 11/25/23 Range/Units 05:55 Sodium (135-145) mmol/L Potassium (3.5-4.5) mmol/L Chloride (101-111) mmol/L Carbon Dioxide (21-32) mmol/L Anion Gap (6-13) BUN (6-20) mg/dL Creatinine (0.6-1.3) mg/dL Estimated GFR (MDRD) (>89) Glucose (74-104) mg/dL POC Whole Bld Glucose (70 - 100) mg/dL Estimat Average Glucose 243 H (70-100) mg/dL Hemoglobin A1c % 10.1 H (4.27-6.07) % Calcium (8.5-10.3) mg/dL ABX Reporting Has patient been on IV antibiotics over the past 48 hours?: Yes Sepsis Event Note (H) - Evaluation Current Stage of Sepsis: Ruled out Possible source of Sepsis: positive: Pulmonary Assessment/Plan - Problem List (1) Acute hypoxemic respiratory failure Impression: Impression: Bronchiolitis seen on CTA. Patient with coarse breath sounds on exam. He has been treated with antibiotics and steroids at this point. We are supporting him with oxygen therapy. He is on @L NS with O2 sat 94-96. he is walking in the room. Blood cultures remain negative. (2) Bronchiolitis Impression: Seen on CTA. There is no infiltrate on CTA. We are treating him with Rocephin day 2/5 azithromycin2/3, prednisone 2/5 .He has been supported with supplemental oxygen. (3) Diabetes mellitus with insulin therapy Impression: His blood sugars have been extremely high since he has been here. . He has had blood sugars in the 400s here . We have adjusted his insulin appropriately and will continue to monitor. He has had multiple interventions for his blood sugar. Highest glucose was 445 and is being treated with insulin. With dinner today, his pre meal glucose is 162. He is also getting Semglee 50 units twice daily. I will not intervene further. Hemoglobin A1c is at 10.1%. (4) Lymphadenopathy Impression: Seen incidentally on CTA of the chest. Flow cytometry has been ordered. Unfortunately the specimen was not sent correctly. This will be drawn on Tuesday evening so that it can be sent on Tuesday morning. If the patient is no longer here we will arrange for outpatient follow-up. (5) Hypertension Impression: He is on lisinopril 20 mg at home. Mildly hypertensive here 145/80 today. Could be due to steroid use. I will not increase his lisinopril. (6) LEAH on CPAP Impression: Possible contributor to current state of illness. He is a compliant CPAP wear although he states his current appliance is not fitting him well. He has his home CPAP and will use that here at the hospital. (7) Iron deficiency anemia Impression: Noted on admission to have low H&H at 11.2/36.5. Follow-up iron studies show iron level low at 17, TIBC 218, transferrin 156. We have ordered p.o. iron. His last colonoscopy was 3 to 4 years ago and he states that it was negative for any polyps he is on a 10-year repeat cycle. (8) Hyperkalemia Impression: Hyperkalemia at 5.3. Probably due to his hyperglycemia. As his glucose has normalized so his his potassium. 4.4 today. BMP in the a.m. (9) Hyponatremia Impression: Hyponatremia. Likely related to his hyperglycemia. Sodium increased today to 133. BMP in AM..
[2023-11-27 06:04] LABS: BASOPHILS % (AUTO) 0.3 %; EOSINOPHILS # (AUTO) 0.1 10^3/uL (0.0-0.7); EOSINOPHILS % (AUTO) 1.6 %; HCT - HEMATOCRIT 35.9 % (42.0-52.0); HGB - HEMOGLOBIN 11.5 g/dL (14.0-18.0); LYMPHOCYTES # (AUTO) 3.6 10^3/uL (1.5-3.5); LYMPHOCYTES % (AUTO) 41.7 %; MEAN CORPUSCULAR HEMOGLOBIN 26.7 pg (27.0-31.0); MEAN CORPUSCULAR VOLUME 83.3 fL (80.0-94.0); MEAN PLATELET VOLUME 9.7 fL (7.4-11.4); MONOCYTES # (AUTO) 0.6 10^3/uL (0.0-1.0); MONOCYTES % (AUTO) 7.2 %; NEUTROPHILS # (AUTO) 4.2 10^3/uL (1.5-6.6); NEUTROPHILS % (AUTO) 48.7 %; PLT - PLATELET COUNT 284 10^3/uL (130-450); RED BLOOD COUNT 4.31 10^6/uL (4.70-6.10); RED CELL DISTRIBUTION WIDTH 15.6 % (12.0-15.0); WHITE BLOOD COUNT 8.6 x10^3/uL (4.8-10.8)
[2023-11-27 06:22] LABS: CREATININE 1.1 mg/dL (0.6-1.3); POTASSIUM 4.2 mmol/L (3.5-4.5)
[2023-11-27 07:14] LABS: DIFFERENTIAL COMMENT MANUAL=AUTO DIFF; PLATELET ESTIMATE, MANUAL NORMAL (130-450,000) (NORMAL); PLATELET MORPHOLOGY NORMAL APPEARANCE (NORMAL)
[2023-11-27] MEDS: cefTRIAXone 1 GM in SODIUM CHLORIDE 0.9% MINIBAG 100 ML IV SCH (08:58)
--- NOTE | 2023-11-27 11:05 | PROVIDER PROGRESS NOTE ---
Subjective - Prog Note Date Prog Note Date: 11/27/23 Prog Note Time: 11:01 - Subjective Pt reports feeling: No change Subjective: The guaifenesin has helped him in causing his cough to become more productive. He is continuing to work on walking in the room while attached to oxygen. He feels like he is able to get his sputum up. He is proud that his blood sugars are under better control. no problems with urination or bowel movements. Current Medications - Current Medications Current Medications: Medications Furosemide (Furosemide 20 Mg/2 Ml Vial) 20 mg IVP BIDDIURETIC [facility] Last Admin: 11/27/23 06:30 Dose: 20 mg Budesonide (Budesonide 0.5 Mg/2 Ml Neb) 0.5 mg INH RTBID [facility] Last Admin: 11/27/23 07:19 Dose: 0.5 mg Ceftriaxone Sodium 1 gm/ (Sodium Chloride) 100 mls @ 200 mls/hr IV DAILY [facility] Stop: 11/28/23 09:29 Last Admin: 11/27/23 08:58 Dose: 200 mls/hr Insulin Glargine-yfgn (Insulin Glargine-Yfgn 300 Unit/3 Ml Pen) 50 unit SUBQ BID [facility] Last Admin: 11/27/23 08:04 Dose: 50 unit Insulin Human Lispro (Insulin Lispro 300 Unit/3 Ml Pen) 20 unit SUBQ TIDWM [facility]; Protocol Last Admin: 11/27/23 08:05 Dose: 20 unit Ferrous Sulfate (Ferrous Sulfate 325 Mg Tablet) 325 mg PO BIDWM [facility] Last Admin: 11/27/23 08:03 Dose: 325 mg Acetaminophen (Acetaminophen 325 Mg Tablet) 650 mg PO Q4HR PRN PRN Reason: Pain 1 to 4, or Fever Albuterol/Ipratropium (Ipratropium/Albuterol 3 Ml Neb) 3 ml INH Q6HR [facility] Last Admin: 11/27/23 07:19 Dose: 3 ml Guaifenesin (Guaifenesin 600 Mg Tablet) 600 mg PO BID [facility] Last Admin: 11/27/23 08:03 Dose: 600 mg Heparin Sodium (Porcine) (Heparin 5,000 Unit/Ml Vial) 5,000 unit SUBQ BID [facility] Last Admin: 11/27/23 08:03 Dose: 5,000 unit Hydralazine HCl (Hydralazine Inj 20 Mg/Ml Vial) 10 mg IVP Q6HR PRN PRN Reason: sbp>160 Insulin Human Lispro (Insulin Lispro 300 Unit/3 Ml Pen) 0 unit SUBQ TIDWM [facility]; Protocol Last Admin: 11/27/23 08:05 Dose: Not Given Lisinopril (Lisinopril 20 Mg Tablet) 20 mg PO DAILY [facility] Last Admin: 11/27/23 08:03 Dose: 20 mg Ondansetron HCl (Ondansetron 4 Mg/2 Ml Vial) 4 mg IVP Q6HR PRN PRN Reason: Nausea / Vomiting Prednisone (Prednisone 20 Mg Tablet) 40 mg PO DAILY [facility] Stop: 11/28/23 09:01 Last Admin: 11/27/23 08:03 Dose: 40 mg Objective - Vital Signs/Intake & Output Vital Signs: Vital Signs x48h Temp Pulse Pulse Resp BP Pulse Ox O2 Flow Rate 11/27/23 10:26 37 C 87 18 137/88 H 95 2 11/27/23 07:20 88 22 2 Intake & Output: Intake & Output 11/24/23 11/25/23 11/26/23 11/27/23 23:59 23:59 23:59 23:59 Intake Total 350 1240 3050 1230 Output Total 0 Balance 350 1240 3050 1230 - Objective General Appearance: positive: No acute distress Eyes Bilateral: positive: Normal inspection ENT: positive: ENT inspection nml Neck: positive: Nml inspection Respiratory: positive: Chest non-tender, No respiratory distress, Wheezes (right sided wheeze) Cardiovascular: positive: Regular rate & rhythm Abdomen: positive: No distention Back: positive: Nml inspection Skin: positive: Color nml Extremities: positive: Non-tender, Pedal edema (baseline edema present) Neurologic/Psychiatric: positive: Oriented x3, Mood/affect nml - Lab Results Fish Bones: 11/27/23 05:30 11/27/23 05:30 Other Labs: Lab Results x24hrs 11/27/23 11/27/23 11/27/23 Range/Units 07:53 05:30 05:30 WBC 8.6 (4.8-10.8) x10^3/uL RBC 4.31 L (4.70-6.10) 10^6/uL Hgb 11.5 L (14.0-18.0) g/dL Hct 35.9 L (42.0-52.0) % MCV 83.3 (80.0-94.0) fL MCH 26.7 L (27.0-31.0) pg MCHC 32.0 (32.0-36.0) g/dL RDW 15.6 H (12.0-15.0) % Plt Count 284 (130-450) 10^3/uL MPV 9.7 (7.4-11.4) fL Neut # (Auto) 4.2 (1.5-6.6) 10^3/uL Lymph # (Auto) 3.6 H (1.5-3.5) 10^3/uL Nobles # (Auto) 0.6 (0.0-1.0) 10^3/uL Eos # (Auto) 0.1 (0.0-0.7) 10^3/uL Baso # (Auto) 0.0 (0.0-0.1) 10^3/uL Absolute Nucleated RBC 0.00 x10^3/uL Band Neuts % (Manual) Not Reportable Abnorm Lymph % (Manual) Not Reportable Nucleated RBC % 0.0 /100WBC Neutrophils # (Manual) Not Reportable Lymphocytes # (Manual) Not Reportable Monocytes # (Manual) Not Reportable Eosinophils # (Manual) Not Reportable Basophils # (Manual) Not Reportable Differential Comment MANUAL=AUTO DIFF Platelet Estimate NORMAL (130-450,000) (NORMAL) Platelet Morphology NORMAL APPEARANCE (NORMAL) Sodium 136 (135-145) mmol/L Potassium 4.2 (3.5-4.5) mmol/L Chloride 97 L (101-111) mmol/L Carbon Dioxide 33 H (21-32) mmol/L Anion Gap 6.0 (6-13) BUN 25 H (6-20) mg/dL Creatinine 1.1 (0.6-1.3) mg/dL Estimated GFR (MDRD) 84 L (>89) Glucose 151 H (74-104) mg/dL POC Whole Bld Glucose 109 H (70 - 100) mg/dL Calcium 9.0 (8.5-10.3) mg/dL 11/26/23 11/26/23 Range/Units 21:06 16:49 WBC (4.8-10.8) x10^3/uL RBC (4.70-6.10) 10^6/uL Hgb (14.0-18.0) g/dL Hct (42.0-52.0) % MCV (80.0-94.0) fL MCH (27.0-31.0) pg MCHC (32.0-36.0) g/dL RDW (12.0-15.0) % Plt Count (130-450) 10^3/uL MPV (7.4-11.4) fL Neut # (Auto) (1.5-6.6) 10^3/uL Lymph # (Auto) (1.5-3.5) 10^3/uL Nobles # (Auto) (0.0-1.0) 10^3/uL Eos # (Auto) (0.0-0.7) 10^3/uL Baso # (Auto) (0.0-0.1) 10^3/uL Absolute Nucleated RBC x10^3/uL Band Neuts % (Manual) Abnorm Lymph % (Manual) Nucleated RBC % /100WBC Neutrophils # (Manual) Lymphocytes # (Manual) Monocytes # (Manual) Eosinophils # (Manual) Basophils # (Manual) Differential Comment Platelet Estimate (NORMAL) Platelet Morphology (NORMAL) Sodium (135-145) mmol/L Potassium (3.5-4.5) mmol/L Chloride (101-111) mmol/L Carbon Dioxide (21-32) mmol/L Anion Gap (6-13) BUN (6-20) mg/dL Creatinine (0.6-1.3) mg/dL Estimated GFR (MDRD) (>89) Glucose (74-104) mg/dL POC Whole Bld Glucose 229 H 162 H (70 - 100) mg/dL Calcium (8.5-10.3) mg/dL - Other Results/Comments Other Results/Comments: blood cultures remain negative. ABX Reporting Has patient been on IV antibiotics over the past 48 hours?: Yes Sepsis Event Note (H) - Evaluation Current Stage of Sepsis: Ruled out Possible source of Sepsis: positive: Pulmonary Assessment/Plan - Problem List (1) Acute hypoxemic respiratory failure Impression: Bronchiolitis seen on CTA. Continues to have some wheezing on exam. His O2 saturations are 97% on 2 L via nasal cannula. When I test him on room air at rest he is at 89%. He is hospital day 4. He has completed a course of Zithromax. He is day 3 of 5 on Rocephin and day 3 of 5 on prednisone. . he is walking in the room. Blood cultures remain negative. His response to treatment is as expected. This is a critical access hospital. Patient will be here for greater than 96 hours. He is improving with his bronchitis and hypoxic respiratory failure in that his oxygen requirements are stable and he is symptomatically improving. His antibiotic therapy is in progress It is not appropriate to transfer him to higher level of care as he is getting his needs met at this facility at this time. His pulmonary status is expected to improve. He will will require an additional 2 to 3 days as an inpatient. (2) Bronchiolitis Impression: Seen on CTA. There is no infiltrate on CTA. Treatment as is mentioned in #1. (3) Diabetes mellitus with insulin therapy Impression: Blood sugars in the 400s on admission. I have adjusted his insulin appropriately and His blood sugars are now below 200 with multiple interventions. I have ordered long-acting glargine insulin twice a day. He is getting 20 units of lispro with meals and is also on corrective sliding scale moderate dose. Hemoglobin A1c is at 10.1%. (4) Lymphadenopathy Impression: Seen incidentally on CTA of the chest. Flow cytometry has been ordered. Unfortunately the specimen was not sent correctly. I have confirmed with the lab that patient will have this lab drawn this even ing. This will be sent to outside lab in the morning. (5) Hypertension Impression: He is on lisinopril 20 mg at home. Mildly hypertensive here 137/88 today. Could be due to steroid use. Prednisone day #3/5 I will not increase his lisinopril. (6) LEAH on CPAP Impression: Possible contributor to current state of illness. He is a compliant CPAP wear although he states his current appliance is not fitting him well. He has his home CPAP and will use that here at the hospital. (7) Iron deficiency anemia Impression: Noted on admission to have low H&H at 11.2/36.5. Follow-up iron studies show iron level low at 17, TIBC 218, transferrin 156. I have ordered PO iron . His last colonoscopy was 3 to 4 years ago and he states that it was negative for any polyps he is on a 10-year repeat cycle. (8) Hyperkalemia Impression: Hyperkalemia resolved. Likely was due to hyperglycemia. BMP in the AM. (9) Hyponatremia Impression: Hyponatremia. Likely related to his hyperglycemia. resolved. BMP in the AM
[2023-11-28 07:23] LABS: CALCIUM 8.9 mg/dL (8.5-10.3); CREATININE 1.1 mg/dL (0.6-1.3); POTASSIUM 3.8 mmol/L (3.5-4.5)
[2023-11-28 07:58] VITALS: BP 152/81; O2SAT 96
[2023-11-28] MEDS: INSULIN GLARGINE-YFGN 300 UNIT/3 ML PEN SUBQ SCH (10:22)
[2023-11-28] MEDS ORDERED: INSULIN LISPRO 300 UNIT/3 ML PEN SUBQ SCH (12:00)
[2023-11-28] MEDS: INSULIN LISPRO 300 UNIT/3 ML PEN SUBQ SCH ×2 (12:29→12:30)
--- NOTE | 2023-11-28 13:37 | Discharge Plan ---
Discharge Plan Problem Reviewed?: Yes Disposition: Home, Self Care Condition: Good Prescriptions: Ferrous Sulfate [Feosol] 325 mg PO DAILY #90 tab Insulin Regular, Human [Humulin R U-500] 120 unit SUBQ DAILY #20 ml guaiFENesin [Mucinex] 600 mg PO BID #60 tab Albuterol Sulfate [Proair Respiclick] 90 mcg IH Q4H PRN #1 each PRN Reason: Shortness Of Air/Wheezing Tiotropium [place] [Spiriva Respimat] 2 puffs IH DAILY #1 each Budesonide/Formoterol Fumarate [Symbicort 160-4.5 Mcg Inhaler] 2 puffs IH BID #1 each Diet: Diabetic Activity Restrictions: No Restrictions Shower Restrictions: No Driving Restrictions: No Assistance Devices: Cane Weight Bearing: Full Weight Instruction Topics: Bronchitis Acute Dc, Diabetes Type 2 Coping, Diabetes Healthy Meals, Diabetes Carbs Health Concerns: You were admitted to the hospital with a severe bronchitis which caused you not to be able to get enough oxygen in your lungs. We are able to treat you with antibiotics and steroids to relieve the inflammation. You are doing better but you still need oxygen at home. We are getting you set up with that. We have some additional medications for your lungs. These are called Symbicort and Spiriva. They are a combination of 3 different medications all that you should take on a daily basis. Please follow the directions with them. They should be covered by . After you use your Symbicort please wash your mouth out as this can cause thrush if the medicine sits in your mouth for too long. A contributor to your infection was probably your diabetes. Your blood sugars were high and it looks like they have been on a chronic basis because your hemoglobin A1c was 10.1. I know that you can work to get your blood sugars down. It sounds like you have had a rough few months with changes in your activity level and therefore your diabetes is not well-controlled. I would like you to change her diabetic regimen slightly. You can continue on the U-500 insulin. You should take 120 units when you eat your first meal of the day. You should take 80 units around 2:00 in the afternoon, and 50 units at bedtime. For follow-up with your diabetes you have several options. You should see your primary care provider with the [place]. I also would like you to come to [facility] and see the software educator to work a little bit on things that you can change with diet and activity patterns. When you go home please start using your [place] [employer] monitor. Plan of Treatment: Oxygen to help you breathe Medications to help control the inflammation in your lungs Control of your diabetes Care Goals: I would like you to get your hemoglobin A1c down to less than 7. That would be amazing! I think you can do it. I think you need more education on the right things to eat in the right amount of those things. Control of your diabetes is going to help your lungs because is going to help you fight infection. Control of your diabetes will also help you with the edema that you have in your legs and will help lessen the progression of your diabetic neuropathy. Assessment: Acute hypoxic respiratory failure with bronchitis Poorly controlled diabetes Additional Instructions or Follow Up instructions: Follow-up with software educator at [facility] and the [place]. Follow-Up Care: [facility] Ed No Smoking: If you smoke, Please STOP! Call for help.
--- NOTE | 2023-11-28 14:15 | DISCHARGE SUMMARY ---
Discharge Summary Admit Date: 11/24/23 Discharge Date: 11/28/23 Discharging Provider: Sia Primary Care Provider: [facility] Condition at Discharge: Good Discharge Disposition: 01 Home, Self Care - DIAGNOSES Admission Diagnoses: Acute hypoxemic respiratory failure Bronchitis Diabetes, poorly controlled, with hyperglycemia on insulin therapy. Hypertension LEAH on CPAP Peripheral edema Anemia Discharge Diagnoses with Status of Each Condition: (1) Acute hypoxemic respiratory failure Impression: Bronchiolitis seen on CTA. His O2 saturations are 97% on 2 L via nasal cannula. When I test him on room air at rest he is at 89%. . Blood cultures remain negative. His response to treatment is as expected. With regards to his oxygenation status at discharge: Patient was not hypoxic at rest, with room air O2 sats of 95%. However with exertion on room air, his saturations were 85%. With O2 at 2 L/min nasal cannula with exertion, his O2 sats were 95%. I am ordering home O2, room air at rest and 2 L/min with exertion to treat his acute bronchitis and hypoxemia. (2) Bronchiolitis Impression: Seen on CTA. There is no infiltrate on CTA. Treatment as is mentioned in #1. (3) Diabetes mellitus with insulin therapy Impression: Blood sugars in the 400s on admission. I have adjusted his insulin appropriately and His blood sugars are now below 200 with multiple interventions. At the time of discharge I have adjusted his insulin regimen back to his U100. 120 units with breakfast or his first meal of the day, 80 units at about 2:00 in the afternoon and 50 units at at bedtime. He has a Keenkoyle abdirashid and he will continue to use this CGM. We discussed further interventions and education for his diabetes. While he was here in the hospital his blood sugars range from close to 500 down to a low of 50 on the date of discharge. He was educated about appropriate treatment of hypoglycemia in the outpatient environment. Hemoglobin A1c is at 10.1%. (4) Lymphadenopathy Impression: Seen incidentally on CTA of the chest. Flow cytometry has been ordered. Flow cytometry specimen was sent this morning. This should be followed in the outpatient environment. (5) Hypertension Impression: He is on lisinopril 20 mg at home. At times he was mildly hypertensive into the 150s while inpatient. I have discharged him home on his home medication regimen he will follow-up with his primary care provider. (6) LEAH on CPAP Impression: Possible contributor to current state of illness. He is a compliant CPAP wear although he states his current appliance is not fitting him well. Needs sleep medicine follow-up. (7) Iron deficiency anemia Impression: Noted on admission to have low H&H at 11.2/36.5. Follow-up iron studies show iron level low at 17, TIBC 218, transferrin 156. I have ordered PO iron . His last colonoscopy was 3 to 4 years ago and he states that it was negative for any polyps he is on a 10-year repeat cycle. (8) Hyperkalemia Impression: Hyperkalemia resolved. Likely was due to hyperglycemia. (9) Hyponatremia Impression: Hyponatremia. Likely related to his hyperglycemia. resolved. - HPI History of Present Illness: From telemedicine history and physical. 58M c morbid obesity, T2DM on U500, hypertension, LEAH on cpap, BLE edema who presents to the ED reporting worsening SOB than baseline. Patient noted cough. no sore throat. no fever. no chest pain. no palpitation. no increase swelling a raymond baseline in extremities. He mentions SOB for 6 months. He has did not see a physician for the SOB until recently when it got worse. He states lying flat makes the SOB worse. He has no hx of asthma. He says recently he has been to urgent care and two ED visits and was prescribed breathing treatments, abx, and oral steroids. Most recently, patient was seen in [facility] ED this past Tuesday/ on and was given steroids and breathing treatment and got better. He was discharged home with prescriptions. There is a question if patient continue medical management outpatient. Either case, patient returned to urgent care and was noted to be hypoxemic mid 80's on room air. He was brought into the ED by EMS and was given breathing treatment in en route. He was noted to be hypoxemic here in the ED mid 80s on room air. Currently patient is better on 2 L NC. CTA shows no infiltrate or PE. He is noted for signs of bronchitis. - HOSPITAL COURSE Hospital Course: Admitted with acute hypoxemic respiratory failure secondary to acute bronchitis which was seen on CTA. Underwent a course of azithromycin and Rocephin. Was placed on steroids to control inflammation and reactive airway disease. Comorbidities of diabetes mellitus insulin dependent with poor glycemic control were treated with adjustments in his insulin regimen. Hypertension was monitored and managed he continued his home lisinopril. LEAH managed on home CPAP. He had some peripheral edema initially that improved with Lasix treatment as well as with control of his blood sugars. With regards to his blood sugars his blood sugars were close to 500 around the time of admission. Unfortunately in the home setting he was taking about 140 units of U400 insulin in the morning then with additional doses throughout the day. He was experiencing some low blood sugars in addition to high blood sugars spending very little time in range as evidenced by his report from his CGM. He reports to me that his previous A1c had been 9.7% in the outpatient environment. We repeated A1c here and discovered it to be 10.1%. This shows evidence of poor glycemic control. With nutritional insulin and glargine doses split twice daily in combination with the moderate dose correction and insulin we were able to bring his blood sugars under control in the inpatient environment. We have made slight adjustments to his regimen. We have recommended that he follow-up with the biodiesel division manager in addition to following up with his care providers both at the ID and at the [facility]. Incidentally found on the CTA of the chest was supra clavicular and bilateral anterior cervical lymphadenopathy which was not evident on physical exam due to patient's body habitus with a BMI of approximately 47. Flow cytometry looking for lymphoma was ordered and sent. This is pending at this time. This needs follow-up in the outpatient setting. Also with iron deficiency anemia which was treated with oral iron therapy. Patient is up-to-date on his colonoscopy. - ALLERGIES Allergies/Adverse Reactions: Allergies Allergy/AdvReac Type Severity Reaction Status Date / Time No Known Drug Allergies Allergy Verified 11/24/23 17:56 - MEDICATIONS Home Medications: Ambulatory Orders Medication Instructions Recorded Confirmed lisinopriL [Lisinopril] 20 mg PO DAILY 02/10/17 11/24/23 Furosemide [Lasix] 40 mg PO BID 11/24/23 11/24/23 Insulin Regular, Human [Humulin R 60 unit SUBQ QPM 11/25/23 11/25/23 U-500] Insulin Regular, Human [Humulin R 80 unit SUBQ 1200 11/25/23 11/25/23 U-500] Metformin HCl 1,000 mg PO BID 11/25/23 11/25/23 Semaglutide [Ozempic] 1 mg SQ Q7D 11/25/23 11/25/23 Albuterol Sulfate [Proair 90 mcg IH Q4H PRN #1 each 11/28/23 Respiclick] Budesonide/Formoterol Fumarate 2 puffs IH BID #1 each 11/28/23 [Symbicort 160-4.5 Mcg Inhaler] Ferrous Sulfate [Feosol] 325 mg PO DAILY #90 tab 11/28/23 Insulin Regular, Human [Humulin R 120 unit SUBQ DAILY #20 ml 11/28/23 U-500] Tiotropium [place] [Spiriva 2 puffs IH DAILY #1 each 11/28/23 Respimat] guaiFENesin [Mucinex] 600 mg PO BID #60 tab 11/28/23 - PHYSICAL EXAM AT DISCHARGE General Appearance: positive: No acute distress Eyes Bilateral: positive: Normal inspection ENT: positive: ENT inspection nml Neck: positive: Nml inspection Respiratory: positive: Chest non-tender, No respiratory distress, Wheezes (slight wheeze on right. ) Cardiovascular: positive: Regular rate & rhythm Abdomen: positive: Non-tender. negative: Tenderness Back: positive: Nml inspection Skin: positive: Color nml Extremities: positive: Pedal edema (1+ with stasis skin changes) Neurologic/Psychiatric: positive: Oriented x3 - LABS Result Diagrams: 11/27/23 05:30 11/28/23 06:36 - SEPSIS Current Stage of Sepsis: Ruled out Possible source of Sepsis: Pulmonary - FOLLOW UP Follow Up: PCP within one week. Follow-up with biodiesel division manager Follow-up on flow cytometry. Recheck blood pressure in the outpatient setting consider increase of lisinopril if needed. Follow-up anemia studies - TIME SPENT Time Spent in Discharge (Minutes): 45
[2023-11-28] MEDS ORDERED: INSULIN GLARGINE-YFGN 300 UNIT/3 ML PEN SUBQ SCH (21:00)
== END 2023-11-28 15:46 | disposition home or self-care (01) | DRG 189 ==
LOC: EDUNIT# → ED 17:49 → MS2 19:50
PROVIDERS: ADMIT Internal Medicine; ATTEND Physician Assistant Medical
DX: J96.01 Acute respiratory failure with hypoxia (principal); J21.9 Acute bronchiolitis, unspecified; E87.1 Hypo-osmolality and hyponatremia; Z68.42 Body mass index [BMI] 45.0-49.9, adult; E11.65 Type 2 diabetes mellitus with hyperglycemia; I10 Essential (primary) hypertension; G47.33 Obstructive sleep apnea (adult) (pediatric); R60.0 Localized edema; R59.1 Generalized enlarged lymph nodes; D50.9 Iron deficiency anemia, unspecified; E87.5 Hyperkalemia; E66.01 Morbid (severe) obesity due to excess calories; Z20.818 Contact with and (suspected) exposure to other bacterial communicable diseases; Z20.822 Contact with and (suspected) exposure to COVID-19; Z20.828 Contact with and (suspected) exposure to other viral communicable diseases; Z79.4 Long term (current) use of insulin; Z79.84 Long term (current) use of oral hypoglycemic drugs; Z79.899 Other long term (current) drug therapy
CPT/HCPCS: 36415; 71275; 80048; 80053; 80061; 82607; 82746; 83036; 83540; 83605; 83735; 83880; 84100; 84443; 84466; 85025; 85027; 87040; 87633; 93307; 94640; 94761; 96374; 96375; 99285; A9270; J1815; J7512; J7626; Q9967; 82274; 83721

== ENCOUNTER 2024-01-06 16:01 | Outpatient (CLI) | payer OTHER ==
--- NOTE | 2024-01-06 16:36 | Sleep Patient Instructions ---
Sleep Center Visit Summary - Patient Visit Information Reason for Visit: Annual Follow up - Patient Instructions Additional Instructions: You will continue with CPAP therapy with pressure set at 8-16.5 cmH2O. A supply prescription will be updated with your DME. We encourage you to continue to try to lose weight. Please follow up with the sleep care office in 1 year. - Clinic Information Contact: [facility] [address] [place] [address] [email or web address] T: [phone]
--- NOTE | 2024-01-06 16:40 | SLEEP CARE CONSULTATION ---
Information from patient questionnaire entered by Monika Amin. I have reviewed and concur with the information entered by Monika Amin. This document represents the service I personally performed and the decisions made by me, Jasmine Nolna ARNP. History of Present Illness Service Date and Time: 01/06/2024 1601 Previous diagnosis: Severe, Obstructive Sleep Apnea-Hypopnea Syndrome AHI: 41 (2007) Reason for follow up: annual (LAST SEEN 02/2022) Equipment type: CPAP (Koki G3, MACHINE) Equipment obtained from: Other ([facility]; getting supplies) Mask style: Nasal pillows Backup mask available: Yes Last cushion change: 2 weeks Prior sleep studies: Yes Year and Where: [facility] 2007 Type of Sleep Study: Polysomnography HPI additional information: ORTIZ TEIXEIRA was diagnosed to have severe, AHI 41, obstructive sleep apnea- hypopnea syndrome and returned today for CPAP therapy annual follow-up. Sleep Study - Results Type of Sleep Study: Polysomnography Prior sleep studies: Yes Year and Where: [facility] 2007 CPAP Compliance Data - Data Reviewed with Patient Average duration of nightly device use: 3 hours 58 minutes Compliance rate %: 43.3 (329/363 days used, 90% use; 01/07/23-01/04/24) Current pressure setting (cmH2O): 8-16.5 (avg 9.9) Average residual AHI: 1 Central apnea: 0.2 Average large leak: 2 minutes Subjective Patient concerns: reports: dry mouth, nose, throat. denies: aerophagia, mask discomfort, air blowing in eyes, mask leak noise, condensation in mask/hose, nasal congestion, epistaxis Observed to snore while using device: No Current pressure setting perceived as: comfortable On therapy, patient: reports: sleeping better, awakening more refreshed, being more awake and alert during the day, more rested overall. denies: drowsiness while driving Initial [place] Sleepiness Scale score: 10 (10/2021) Current [place] Sleepiness Scale score: 12 (01/06/24) Allergies and Home Medications Known drug allergies: No Drug allergies reviewed: Yes Home medication list reviewed: Yes (no changes) Allergy and home medication list: Allergies No Known Drug Allergies Allergy (Verified 01/04/24 10:44) Review of Systems Review of systems same as previous: Yes (NO CHANGE) Physical Exam Vital signs obtained and entered by: MONIKA Fernandes MA Blood Pressure: 147/79 (LEFT ARM) Cuff size: long Heart Rate: 91 O2 Saturation: 96 Height: 5 ft 11 in Weight: 320 lb 12.8 oz Weight change since last visit: 21 lb gain Body Mass Index: 44.7 BMI Classification: Morbidly Obese Impression and Plan 1. Obstructive Sleep Apnea-Hypopnea Syndrome, severe, with fair treatment compliance and good apnea control. On CPAP therapy, the patient has better sleep quality and is more rested overall. He has been getting some very dry mouth and would like to try a full face mask. I advised him to try a chinstrap with his nasal pillows mask to reduce oral venting and dry mouth. He voiced understanding and agreement. I will add a mask refitting for a full face mask. Patient's apnea severity and rationale for treatment to reduce apnea, improve sleep quality and reduce cardiovascular and cerebrovascular events was reviewed. I also reviewed the benefit of consistent device use of CPAP for hypertension, diabetes. 2. Obesity, unspecified. Currently patients BMI is 44.7. Obesity increases the risk of apnea, CPAP pressure requirements and overall health risks especially cardiovascular and diabetes. Thus patient is advised to lose weight. * Continue auto CPAP pressure at 8-16.5 cmH2O * Mask fitting for full face mask * Notify me if snoring with mask or feeling that the pressure is too much or too little * Attempt to lose weight * Call this office if any problems using CPAP * Return for follow up in 12 months, or sooner if concerns arise Counseling Topics: Spare mask, Weight loss health impact Prescriptions: Device supplies Follow up with Sleep Care in: 1 year Visit Type: In Office Time Spent with Patient (minutes): 21 Provider Statement: I spent 100% of the Face to Face Visit with the patient with greater than 50% spent counseling the patient and coordination of care.
[2024-01-06 17:01] VITALS: BP 147/79; O2SAT 96
== END 2024-01-06 16:02 | disposition home or self-care (01) ==
LOC: SC 16:01
PROVIDERS: ATTEND Nurse Practitioner Family
DX: G47.33 Obstructive sleep apnea (adult) (pediatric) (principal); E66.01 Morbid (severe) obesity due to excess calories; Z68.41 Body mass index [BMI] 40.0-44.9, adult
CPT/HCPCS: 99212; 99213

== ENCOUNTER 2024-06-09 15:47 | Observation (INO) ==
[2024-06-09 16:33] LABS: BASOPHILS % (AUTO) 0.5 %; EOSINOPHILS # (AUTO) 0.5 10^3/uL (0.0-0.7); EOSINOPHILS % (AUTO) 7.1 %; HCT - HEMATOCRIT 41.5 % (42.0-52.0); HGB - HEMOGLOBIN 12.4 g/dL (14.0-18.0); LYMPHOCYTES # (AUTO) 1.8 10^3/uL (1.5-3.5); LYMPHOCYTES % (AUTO) 26.6 %; MEAN CORPUSCULAR HEMOGLOBIN 25.7 pg (27.0-31.0); MEAN CORPUSCULAR HGB CONC 29.9 g/dL (32.0-36.0); MEAN CORPUSCULAR VOLUME 86.1 fL (80.0-94.0); MONOCYTES # (AUTO) 0.4 10^3/uL (0.0-1.0); MONOCYTES % (AUTO) 6.5 %; NEUTROPHILS # (AUTO) 3.9 10^3/uL (1.5-6.6); PLT - PLATELET COUNT 249 10^3/uL (130-450); RED BLOOD COUNT 4.82 10^6/uL (4.70-6.10); RED CELL DISTRIBUTION WIDTH 15.2 % (12.0-15.0); WHITE BLOOD COUNT 6.6 x10^3/uL (4.8-10.8)
--- NOTE | 2024-06-09 16:34 | ED Physician Documentation ---
History of Present Illness Stated complaint Stated Complaint: SOA Chief complaint Chief Complaint: Resp History obtained from History obtained from: Patient History of Present Illness Timing: Prior to arrival Additonal information Additional information: Patient is a 59-year-old male presenting to the emergency department with increased shortness of breath going on for the past 3 days. Patient has significant past medical history of LEAH history of CHF with an EF of 50 to 55% on Lasix and history of COPD. Patient was using his albuterol inhaler at home with no relief he has orthopnea x 2 and chronic lower leg swelling. Notes his symptoms worsened a few days ago and he came here to the ED. He was most recently admitted for similar symptoms back in November with at the time being diagnosed with acute bronchiolitis. Patient continues to follow-up with his PCP in the outpatient setting for his symptoms. Meds/Allgy Home Medications Ambulatory Orders Medication Instructions Recorded Confirmed lisinopril 20 mg tablet 20 mg PO DAILY 02/10/17 01/06/24 furosemide 40 mg tablet 40 mg PO BID 11/24/23 01/06/24 insulin regular hum U-500 conc 500 60 unit subcut QPM 11/25/23 01/06/24 unit/mL subcutaneous soln (Humulin R U-500 (Concentrated) Insulin) insulin regular hum U-500 conc 500 80 unit subcut 1200 11/25/23 01/06/24 unit/mL subcutaneous soln (Humulin R U-500 (Concentrated) Insulin) metformin 1,000 mg tablet 1,000 mg PO BID 11/25/23 01/06/24 semaglutide 1 mg/dose (4 mg/3 mL) 1 mg SQ Q7D 11/25/23 01/06/24 subcutaneous pen injector (Ozempic) albuterol sulfate 90 mcg/actuation 90 mcg IH Q4H PRN Shortness Of 11/28/23 01/06/24 breath activated powder inhaler Air/Wheezing #1 ea (ProAir RespiClick) budesonide-formoterol HFA 160 2 puff IH BID asthma #1 ea 11/28/23 01/06/24 mcg-4.5 mcg/actuation aerosol inhaler (Symbicort) ferrous sulfate 325 mg (65 mg 325 mg PO DAILY #90 tabs 11/28/23 01/06/24 iron) tablet guaifenesin 600 mg tablet, 600 mg PO BID #60 tabs 11/28/23 01/06/24 extended release 12 hr (Mucinex) insulin regular hum U-500 conc 500 120 unit (0.24 mL) subcut DAILY 11/28/23 01/06/24 unit/mL subcutaneous soln (Humulin #20 mL R U-500 (Concentrated) Insulin) tiotropium bromide 2.5 2 puff IH DAILY asthma/bronchitis 11/28/23 01/06/24 mcg/actuation mist for inhalation #1 ea (Spiriva Respimat) Allergies Allergies Allergy/AdvReac Type Severity Reaction Status Date / Time No Known Drug Allergies Allergy Verified 06/09/24 16:10 [facility] Social History Social History Smoking Status: Never smoker Do you dip or chew tobacco?: No Do you vape?: No Relationship: Level: Independent Home Mobility Equipment: Cane Do you feel safe in your home environment?: Yes Suffered physical, verbal, emotional, or financial abuse?: No History of Abuse: No POLST Patient has POLST: No Exam Constitutional Morbidly obese body habitus.Diffuse pitting edema to upper and lower extremity HENMT normocephalic and head/scalp atraumatic Eyes PERRL and EOMs intact bilaterally Neck/C-Spine visual inspection normal Lymph no lymphadenopathy noted Chest inspection of chest normal Respiratory Diffuse expiratory wheeze on auscultation of the lungs. Cardiovascular normal heart rate noted Gastrointestinal abdomen normal to inspection Genitourinary no CVA tenderness Back/Pelvis spine normal to inspection Extremities normal to inspection Skin skin color normal Results Vitals Vitals: Vital Signs - 24 hr 06/09/24 15:50 06/09/24 16:30 06/09/24 17:00 Temperature 36.3 C L Temperature Source Temporal Artery Scan Pulse Rate 103 H 100 99 Respiratory Rate 42 H 18 22 Blood Pressure 196/119 H 215/95 H 205/96 H O2 Saturation 98 97 95 O2 Source Room air Pain Intensity 0 06/09/24 17:19 06/09/24 17:19 Temperature Temperature Source Pulse Rate 88 90 Respiratory Rate 26 H Blood Pressure O2 Saturation O2 Source BIPAP Pain Intensity Oxygen O2 Source BIPAP Labs Labs: Laboratory Tests 06/09/24 16:10 WBC 6.6 RBC 4.82 Hgb 12.4 L Hct 41.5 L MCV 86.1 MCH 25.7 L MCHC 29.9 L RDW 15.2 H Plt Count 249 MPV 10.0 Neut # (Auto) 3.9 Lymph # (Auto) 1.8 Grainger # (Auto) 0.4 Eos # (Auto) 0.5 Baso # (Auto) 0.0 Absolute Nucleated RBC 0.00 Nucleated RBC % 0.0 Sodium 138 Potassium 4.0 Chloride 101 Carbon Dioxide 31 Anion Gap 6.0 BUN 16 Creatinine 1.0 Estimated GFR (MDRD) 93 Glucose 194 H Calcium 8.9 Magnesium 1.7 Total Bilirubin 0.3 AST 46 H ALT 48 Alkaline Phosphatase 108 Troponin I High Sens 18.4 B-Natriuretic Peptide 52 Total Protein 7.7 Albumin 4.2 Globulin 3.5 Albumin/Globulin Ratio 1.2 Lipase 116 H PD Medical Decision Making ED course Complexity details: reviewed old records and reviewed results ED course: Patient is a 59-year-old male presenting to the emergency department with symptoms of shortness of breath cough symptoms have been going on for about 3 days. Notes symptoms feel similar to when he was diagnosed with bronchiolitis a few months ago. He notes no recent fevers but has been having worsening shortness of breath. On arrival patient is significantly tachypneic to 42 on arrival barely able to speak in full sentences. He notes some mild cough but not productive. He denies any worsening leg swelling but does have chronic leg swelling. He is slightly tachycardic but does appear to be compensating well at over 95% on room air on arrival. Patient was started on BiPAP on arrival and albuterol treatment was given through his reevaluation he does appear to be breathing better he is on the lowest settings but does feel better with this treatment. Will reevaluate patient after Lasix was given as initial chest x-ray does show mild pulmonary edema. Patient was given 40 IV Lasix as he takes at home dose of 40 mg p.o. His CMP is not significantly elevated no significant elevation in LFTs concerning for significant CHF. His BNP is stable and EKG does show some slightly prolonged QTc but does appear to be in sinus rhythm.Patient troponin within normal range no ST elevation concerning for ischemia or demand ischemia. VBG pending and respiratory PCR panel pending. Patient's findings updated to family and patient and family are agreeable with this plan. Discharge Plan Discharge Prescriptions: No Action lisinopril 20 MG tablet 20 mg PO DAILY furosemide 40 MG tablet 40 mg PO BID insulin regular hum U-500 conc [Humulin R U-500 (Conc) Insulin] 500 UNIT/ML solution 60 unit subcut QPM insulin regular hum U-500 conc [Humulin R U-500 (Conc) Insulin] 500 UNIT/ML solution 80 unit subcut 1200 metformin 1,000 MG tablet 1,000 mg PO BID semaglutide [Ozempic] 1 MG/0.75 ML pen injector 1 mg SQ Q7D ferrous sulfate 325 MG tablet 325 mg PO DAILY Qty: 90 0RF guaifenesin [Mucinex] 600 MG tablet extended release 12hr 600 mg PO BID Qty: 60 0RF albuterol sulfate [ProAir RespiClick] 90 MCG aerosol powdr breath activated 90 mcg IH Q4H PRN (Reason: Shortness Of Air/Wheezing) Qty: 1 0RF budesonide-formoterol [Symbicort] 10.2 GM HFA aerosol inhaler 2 puff IH BID Qty: 1 0RF tiotropium bromide [Spiriva Respimat] 4 GM mist 2 puff IH DAILY Qty: 1 0RF insulin regular hum U-500 conc [Humulin R U-500 (Conc) Insulin] 500 UNIT/ML solution 120 unit subcut DAILY Qty: 20 0RF Rx Instructions: 120u in the AM with food, 80u at 2pm, 50u at bedtime. Print Language: Ecuadorean Stand Alone Forms: PCP List
[2024-06-09 16:47] LABS: ALBUMIN 4.2 g/dL (3.2-5.5); ALBUMIN/GLOBULIN RATIO 1.2 (1.0-2.2); BILIRUBIN,TOTAL 0.3 mg/dL (0.2-1.0); CALCIUM 8.9 mg/dL (8.5-10.3); MAGNESIUM 1.7 mg/dL (1.7-2.3); TOTAL PROTEIN 7.7 g/dL (6.4-8.9)
--- NOTE | 2024-06-09 16:49 | XRAY Report ---
PROCEDURE: XR Chest 1V INDICATIONS: sob TECHNIQUE: One view of the chest was acquired. COMPARISON: CT chest angiogram 11/24/2023 FINDINGS: Surgical changes and devices: None. Lungs and pleura: No pleural effusions or pneumothorax. Mild central bilateral perihilar opacificati on extending to the periphery. Mediastinum: Mediastinal contours appear normal. Heart size is normal. Bones and chest wall: No suspicious bony lesions. Overlying soft tissues appear unremarkable. IMPRESSION: Mild pulmonary edema. Reviewed by: Jose Magana MD on 06/09/2024 4:48 PM PST Approved by: Jose Magana MD on 06/09/2024 4:48 PM PST Station ID: [id number]
[2024-06-09] MEDS: IPRATROPIUM/ALBUTEROL 3 ML NEB INH STA (17:16)
[2024-06-09 17:49] LABS: TROPONIN I HIGH SENSITIVITY 18.4 ng/L (2.3-19.7)
[2024-06-09 18:15] LABS: B. PARAPERTUSSIS- RESP PCR PAN NOT DETECTED; B. PERTUSSIS- RESP PCR PANEL NOT DETECTED; C. PNEUMONIAE- RESP PCR PANEL NOT DETECTED; CORONAVIRUS 229E-RESP PCR NOT DETECTED; CORONAVIRUS HKU1-RESP PCR NOT DETECTED; CORONAVIRUS NL63-RESP PCR NOT DETECTED; CORONAVIRUS OC43-RESP PCR NOT DETECTED; HUMAN METAPNEUMOVIRUS NOT DETECTED; INFLUENZA A- RESP PCR PANEL NOT DETECTED; INFLUENZA B - RESP PCR PANEL NOT DETECTED; M. PNEUMONIAE- RESP PCR PANEL NOT DETECTED; PARAINFLUENZA VIRUS 1 NOT DETECTED; PARAINFLUENZA VIRUS 2 NOT DETECTED; PARAINFLUENZA VIRUS 4 NOT DETECTED; RHINOVIRUS/ENTEROVIRUS NOT DETECTED; RSV- RESP PCR PANEL NOT DETECTED; SARS-CoV-2 -RESP PCR PANEL NOT DETECTED
--- NOTE | 2024-06-09 18:29 | HISTORY & PHYSICAL EXAMINATION ---
Chief Complaint Chief Complaint Chief Complaint: Shortness of breath History of Present Illness Admitted From Admitted From:: Home History Obtained From Records Reviewed: Yes History obtained from: Patient, patient's Exam Limitations: Difficulty speaking with BIPAP mask in place History of Present Illness HPI Comment/Other: Patient is a 59 year old male with a history of obesity hypoventilation syndrome, bilateral peripheral edema, type 2 diabetes mellitus on insulin who presented for worsening shortness of breath. He noted that he started feeling shortness of breath approximately 2 to 3 days ago. He has CPAP machine at home, and he was using it without relief. He only has albuterol inhaler at home, which she states has already run out a few months ago. Of note, his discharge note from 11/2023 show that he should be on both Spiriva and Symbicort. The patient has had no new medications, no recent travel. He has had no sick contacts. He states that this is exactly what happened to him last November. After this time, he did have a sleep study test done. However, he still has not had pulmonary function testing done. He has never smoked in his life. He did grow up in home that use tobacco. He works in an office, and has had no environmental exposure to any toxins. When he got here, he was given a dose of IV Lasix. He was started on BiPAP, which did allow him to feel better. ED course: When patient first got here, he was saturating 96% on room air. He was tachypneic to the high 20s. His heart rate was in the 90s. His blood pressure was elevated in the 200s over 100s. Lab work showed no white count. BMP was largely unremarkable. Respiratory viral panel was negative. VBG remains pending. Chest x-ray showed mild pulmonary edema, no infiltrate was noted. Meds/Allgy Home Medications Ambulatory Orders Medication Instructions Recorded Confirmed furosemide 40 mg tablet 40 mg PO BID 11/24/23 06/10/24 insulin regular hum U-500 conc 500 55 unit subcut QPM 11/25/23 06/10/24 unit/mL subcutaneous soln (Humulin R U-500 (Concentrated) Insulin) insulin regular hum U-500 conc 500 80 unit subcut 1200 11/25/23 06/10/24 unit/mL subcutaneous soln (Humulin R U-500 (Concentrated) Insulin) metformin 1,000 mg tablet 1,000 mg PO BID 11/25/23 06/10/24 semaglutide 1 mg/dose (4 mg/3 mL) 1 mg SQ Q7D 11/25/23 06/10/24 subcutaneous pen injector (Ozempic) ferrous sulfate 325 mg (65 mg 325 mg PO DAILY #90 tabs 11/28/23 06/10/24 iron) tablet guaifenesin 600 mg tablet, 600 mg PO BID #60 tabs 11/28/23 06/10/24 extended release 12 hr (Mucinex) budesonide 0.5 mg/2 mL suspension 0.5 mg (2 mL) inhalation RTBID #60 06/10/24 for nebulization mL insulin regular hum U-500 conc 500 140 unit subcut DAILY 06/10/24 06/10/24 unit/mL subcutaneous soln (Humulin R U-500 (Concentrated) Insulin) lisinopril 40 mg tablet 40 mg PO DAILY #30 tabs 06/10/24 prednisone 20 mg tablet 40 mg (2 x 20 mg) PO DAILYWM #4 06/10/24 tabs tiotropium bromide 1.25 2 puff inhalation DAILY #4 grams 06/10/24 mcg/actuation mist for inhalation (Spiriva Respimat) Allergies Allergies Allergy/AdvReac Type Severity Reaction Status Date / Time No Known Drug Allergies Allergy Verified 06/09/24 16:10 [facility] Medical History Medical History (Updated 06/10/24 @ 11:49 by Magaly Simon MD) Diabetes Social History Social History Smoking Status: Never smoker Do you dip or chew tobacco?: No Do you vape?: No Relationship: Level: Independent Home Mobility Equipment: Cane Do you feel safe in your home environment?: Yes Suffered physical, verbal, emotional, or financial abuse?: No History of Abuse: No POLST Patient has POLST: No POLST Status: Full Code Review of Systems Constitutional Reports: Weakness; Denies: Fatigue, Fever, Chills, Malaise, Night sweats, Changes in appetite or eating habits or Poor appetite Eyes Denies: Pain, Irritation, Amaurosis, Blurry vision, Floaters or Field loss Ears, nose, mouth, and throat Denies: Ear pain, Ear discharge, Hearing loss, Hearing aids, Tinnitus, Nasal discharge, Nasal congestion, Swelling of lips/tongue, Neck pain or Throat swelling Cardiovascular Reports: edema, swelling of feet/ankles, shortness of breath with exertion, shortness of breath when lying down and Decreased exercise tolerance; Denies: Irregular heart rate, chest pain, palpitations, Syncope or lightheadedness Respiratory Reports: Shortness of breath, Cough and Wheezing; Denies: Sputum production, Change in phlegm color, Apnea, Snoring, Stridor or Pleuritic pain Gastrointestinal Denies: Abdominal pain, Abdominal distention, Nausea, Vomiting, Poor appetite, Bile emesis, Porter blood emesis or Coffee grounds in vomit Genitourinary Denies: Painful urination, Flank pain, Incontinence, Urinary frequency, Urinary urgency, Nocturia, Blood in urine or Genital pain Musculoskeletal Denies: Neck pain Integumentary/Breast Reports: Skin swelling and Sores; Denies: Rash, Itching, Dryness, Redness, Skin pain or Skin tenderness Neurological Denies: Headache, General weakness, Focal weakness or Weakness in extremities Psychiatric Denies: Depression, Anxiety, Mood swings, Panic attacks or Change in sleep pattern Endocrine Denies: Excessive urination, Excessive thirst, Polyphagia, Fatigue or Cold intolerance Hematologic/Lymphatic Denies: Anemia, Easy bruising, Petechiae or Easy bleeding Allergic/Immunologic Reports: Wheezing; Denies: Hives, Throat swelling, Tongue swelling or Facial swelling Prior Level of Functionality: Independent of daily activities. Exam Constitutional normal general appearance and no apparent distress HENMT normocephalic, head/scalp atraumatic and hearing grossly normal bilaterally Eyes PERRL, EOMs intact bilaterally and conjunctivae normal Neck/C-Spine visual inspection normal and trachea midline Chest inspection of chest normal and palpation of chest normal Respiratory breath sounds equal bilaterally, abnormal respiratory effort (labored), wheezing noted (expiratory wheezes) and use of accessory muscles noted (minimal use of respiratory muscles) Cardiovascular normal heart rate noted, regular rhythm noted, no gallop, no rub, no murmur and edema noted (2+ edema bilateral LE) Gastrointestinal abdomen normal to inspection, abdomen soft to palpation, nontender to percussion, nondistended, normoactive bowel sounds and no hepatosplenomegaly Genitourinary no CVA tenderness Back/Pelvis spine normal to inspection, no thoracic spine tenderness and no lumbar spine tenderness Extremities normal to inspection, no tenderness and full ROM Neurology no movement abnormality noted and no focal motor deficit noted Psychiatry mental status grossly normal, oriented x3, thought process normal and cooperative Skin skin color normal, no rash and no lesions Conclusion/Plan Problem List (1) Bronchitis: Plan: Patient presents with diffuse wheezing, worsening shortness of breath. Chest x-ray with no obvious infiltrate. Continue Solu-Medrol 40 mg for 3 doses. Will transition to oral prednisone tomorrow. Oral Lasix from home converted to IV Lasix to optimize volume status. Continue on the clock breathing treatments. Wean BiPAP as tolerated. (2) Obesity hypoventilation syndrome: Plan: Patient with no history of COPD or asthma, although he has not completed any PFT testing. Continue BiPAP when sleeping. Has had a couple episodes of bronchitis now. May be chronic in nature. Advised to see incident engineer in outpatient setting. (3) Diabetes: Plan: Continue 30 units long-acting insulin tonight, sliding scale insulin with meals, glucose checks, hypoglycemic protocol. Qualifiers: Diabetes mellitus complication status: without complication Diabetes mellitus middle or intermediate school principal insulin use: with middle or intermediate school principal use Diabetes mellitus type: type 2 Qualified Code(s): E11.9 - Type 2 diabetes mellitus without complications; Z79.4 - tank terminal gauger (current) use of insulin (4) Hypertension: Plan: Continue home lisinopril (doubled to 40 mg daily), and home metoprolol. Qualifiers: Hypertension type: unspecified Qualified Code(s): I10 - Essential (primary) hypertension Lab Results Lab results reviewed: Yes 06/10/24 04:36 06/10/24 04:36 Diagnostic Imaging Results Diagnostic Imaging Results: positive Final report reviewed EKG Results EKG Interpreted Independently: Yes
[2024-06-09 18:30] LABS: VBG BASE EXCESS 1.8 mmol/L (-2 - +2); VBG HCO3 28.6 mmol/L (23-28); VBG PCO2 53.9 mmHg (41-51); VBG PH 7.342 (7.31-7.41); VBG PO2 37.2 mmHg (25-47); VBG TOTAL CO2 30.2 mmol/L (24-29)
[2024-06-09 18:31] LABS: VBG OXYGEN SATURATION 68.3 % (60-80)
[2024-06-09] MEDS: FUROSEMIDE 40 MG/4 ML VIAL IVP STA ×2 (18:35→18:47)
[2024-06-09] MEDS ORDERED: ACETAMINOPHEN 325 MG TABLET PO PRN (18:43)
[2024-06-09] MEDS ORDERED: SODIUM CHLORIDE FLUSH 0.9% 10 ML SYRINGE IVP PRN (18:43)
[2024-06-09] MEDS: methylPREDNISolone SUCCINATE 40 MG/ML VIAL IVP SCH (18:47)
[2024-06-09] MEDS ORDERED: IPRATROPIUM/ALBUTEROL 3 ML NEB INH SCH (19:00)
[2024-06-09] MEDS ORDERED: IPRATROPIUM/ALBUTEROL 3 ML NEB INH PRN (19:00)
[2024-06-09] MEDS: guaiFENesin 600 MG TABLET PO SCH (20:05)
[2024-06-09] MEDS: INSULIN LISPRO 300 UNIT/3 ML PEN SUBQ SCH (21:09)
[2024-06-09] MEDS: INSULIN GLARGINE-YFGN 300 UNIT/3 ML PEN SUBQ SCH (21:09)
[2024-06-09] MEDS: ENALAPRILAT 1.25 MG/ML VIAL IVP ONE (21:23)
[2024-06-09] MEDS: IPRATROPIUM/ALBUTEROL 3 ML NEB INH SCH (22:27)
[2024-06-09] MEDS: BUDESONIDE 0.5 MG/2 ML NEB INH SCH (22:27)
[2024-06-09] MEDS: NITROGLYCERIN 2% PASTE TOP ONE (23:54)
[2024-06-10] MEDS: SODIUM CHLORIDE FLUSH 0.9% 10 ML SYRINGE IVP SCH (01:22)
[2024-06-10 05:15] LABS: HGB - HEMOGLOBIN 12.2 g/dL (14.0-18.0); MEAN CORPUSCULAR HGB CONC 30.5 g/dL (32.0-36.0); MEAN CORPUSCULAR VOLUME 85.1 fL (80.0-94.0); MEAN PLATELET VOLUME 10.5 fL (7.4-11.4); RED BLOOD COUNT 4.7 10^6/uL (4.70-6.10); RED CELL DISTRIBUTION WIDTH 15.1 % (12.0-15.0); WHITE BLOOD COUNT 6.7 x10^3/uL (4.8-10.8)
[2024-06-10 05:32] LABS: CALCIUM 8.8 mg/dL (8.5-10.3); CREATININE 1.1 mg/dL (0.6-1.3); POTASSIUM 5.2 mmol/L (3.5-4.5)
[2024-06-10] MEDS: ENOXAPARIN 40 MG/0.4 ML SYRINGE SUBQ SCH (08:08)
[2024-06-10] MEDS: FUROSEMIDE 40 MG/4 ML VIAL IVP SCH (08:08)
[2024-06-10] MEDS: FERROUS SULFATE 325 MG TABLET PO SCH (08:08)
[2024-06-10] MEDS: lisinopriL 20 MG TABLET PO SCH (08:08)
--- NOTE | 2024-06-10 08:45 | PROVIDER PROGRESS NOTE ---
Subjective Subjective Subjective: Patient used BiPAP overnight. This morning, I feels much improved. Will try him off BiPAP. He has no cough, no fevers, no chills. His and himself were spoken withadvised to see a veterinary meat inspector, get pulmonary function testing done. He has no known diagnosis of either asthma, COPD, chronic bronchitis, etc., but has had about 3-4 admissions similar to this one. It does appear to be something more than just obesity hypoventilation syndrome as he always has diffuse wheezing, as well as imaging changes suggestive of chronic inflammation or obstruction. Current Medications Current Medications Current Medications: Current Medications Generic Name Dose Route Start Last Admin Trade Name Freq PRN Reason Stop Dose Admin Acetaminophen 650 mg 06/09/24 18:43 Acetaminophen 325 Mg Tablet PO Q4HR PRN Pain 1 to 4, or Fever Albuterol/Ipratropium 3 ml 06/09/24 19:00 06/10/24 07:04 Ipratropium/Albuterol 3 Ml Neb INH 3 ml RTQ4H RITA Administration Albuterol/Ipratropium 3 ml 06/09/24 19:00 Ipratropium/Albuterol 3 Ml Neb INH Q2H PRN Wheezing Budesonide 0.5 mg 06/09/24 19:00 06/10/24 07:04 Budesonide 0.5 Mg/2 Ml Neb INH 0.5 mg RTBID RITA Administration Enoxaparin Sodium 40 mg 06/10/24 09:00 06/10/24 08:08 Enoxaparin 40 Mg/0.4 Ml Syringe SUBQ 40 mg DAILY RITA Administration Ferrous Sulfate 325 mg 06/10/24 09:00 06/10/24 08:08 Ferrous Sulfate 325 Mg Tablet PO 325 mg DAILY RITA Administration Furosemide 40 mg 06/10/24 09:00 06/10/24 08:08 Furosemide 40 Mg/4 Ml Vial IVP 40 mg DAILY RITA Administration Guaifenesin 600 mg 06/09/24 21:00 06/10/24 08:08 Guaifenesin 600 Mg Tablet PO 600 mg BID RITA Administration Insulin Glargine-yfgn 30 unit 06/09/24 21:00 06/09/24 21:09 Insulin Glargine-Yfgn 300 Unit/3 Ml Pen SUBQ 30 unit QPM RITA Administration Insulin Human Lispro 1 - 5 unit 06/09/24:00 06/09/24 21:09 Insulin Lispro 300 Unit/3 Ml Pen SUBQ 1 unit 0800,1200,1700,2100 RITA Administration Protocol Lisinopril 20 mg 06/10/24 09:00 06/10/24 08:08 Lisinopril 20 Mg Tablet PO 20 mg DAILY RITA Administration Prednisone 40 mg 06/10/24 09:00 Prednisone 20 Mg Tablet PO DAILYWM RITA Sodium Chloride 10 ml 06/10/24 01:00 06/10/24 08:09 Sodium Chloride Flush 0.9% 10 Ml Syringe IVP 10 ml 0100,0900,1700 RITA Administration Sodium Chloride 10 ml 06/09/24 18:43 Sodium Chloride Flush 0.9% 10 Ml Syringe IVP PRN PRN NEEDED PER PROVIDER ORDERS Objective Vital Signs/Intake & Output Reviewed Vital Signs: Yes Vital Signs: Vital Signs x48h Temp Pulse Pulse Resp BP Pulse Ox 06/10/24 07:06 92 24 06/10/24 07:06 90 06/10/24 07:00 92 23 168/93 H 97 06/10/24 06:00 96 14 148/93 H 98 06/10/24 05:00 98.1 F 99 20 155/95 H 92 06/10/24 04:15 81 06/10/24 04:00 82 20 162/84 H 97 06/10/24 03:00 84 20 144/73 H 96 06/10/24 02:00 87 20 157/78 H 97 06/10/24 01:15 88 06/10/24 01:00 85 15 156/83 H 98 Intake & Output: Intake & Output 06/07/24 06/08/24 06/09/24 06/10/24 23:59 23:59 23:59 23:59 Intake Total 300 / 300 Output Total 425 / 425 450 / 450 Balance -425 / -425 -150 / -150 Weight (kg) 154 kg 151.5 kg Objective General Appearance: positive No acute distress and Alert; negative Anxious or Lethargic Eyes Bilateral: positive Normal inspection, PERRL and EOMI ENT: positive ENT inspection nml, Pharynx nml and No signs of dehydration Neck: positive Nml inspection, Thyroid nml, No JVD and Trachea midline Respiratory: positive Chest non-tender, No respiratory distress and Wheezes (minimal and improved from yesterday; bibasilar wheezing, expiratory); negative Breath sounds nml Cardiovascular: positive Regular rate & rhythm, No murmur and No gallop; negative Irregularly irregular Abdomen: positive Non-tender, No organomegaly and Nml bowel sounds; negative Guarding, Rebound, Hepatomegaly or Splenomegaly Back: positive Nml inspection; negative CVA tenderness (R) or CVA tenderness (L) Skin: positive Color nml, No rash, Warm and Dry Extremities: positive Non-tender, Full ROM, Nml appearance and Pedal edema (minimal, trace) Neurologic/Psychiatric: positive Oriented x3 and Mood/affect nml Lab Results 06/10/24 04:36 06/10/24 13:15 Other Labs: Lab Results x24hrs 06/10/24 06/10/24 06/09/24 Range/Units 08:02 04:36 21:03 WBC 6.7 (4.8-10.8) x10^3/uL RBC 4.70 (4.70-6.10) 10^6/uL Hgb 12.2 L (14.0-18.0) g/dL Hct 40.0 L (42.0-52.0) % MCV 85.1 (80.0-94.0) fL MCH 26.0 L (27.0-31.0) pg MCHC 30.5 L (32.0-36.0) g/dL RDW 15.1 H (12.0-15.0) % Plt Count 246 (130-450) 10^3/uL MPV 10.5 (7.4-11.4) fL Neut # (Auto) (1.5-6.6) 10^3/uL Lymph # (Auto) (1.5-3.5) 10^3/uL [place] # (Auto) (0.0-1.0) 10^3/uL Eos # (Auto) (0.0-0.7) 10^3/uL Baso # (Auto) (0.0-0.1) 10^3/uL Absolute Nucleated RBC x10^3/uL Nucleated RBC % /100WBC VBG pH (7.31-7.41) VBG pCO2 (41-51) mmHg VBG pO2 (25-47) mmHg VBG HCO3 (23-28) mmol/L VBG Total CO2 (24-29) mmol/L VBG O2 Saturation (60-80) % VBG Base Excess (-2 - +2) mmol/L Sodium 134 L (135-145) mmol/L Potassium 5.2 H (3.5-4.5) mmol/L Chloride 100 L (101-111) mmol/L Carbon Dioxide 28 (21-32) mmol/L Anion Gap 6.0 (6-13) BUN 25 H (6-20) mg/dL Creatinine 1.1 (0.6-1.3) mg/dL Estimated GFR (MDRD) 83 L (>89) Glucose 310 H (74-104) mg/dL POC Whole Bld Glucose 332 147 (70-100) mg/dL Calcium 8.8 (8.5-10.3) mg/dL Magnesium (1.7-2.3) mg/dL Total Bilirubin (0.2-1.0) mg/dL AST (10-42) IU/L ALT (10-60) IU/L Alkaline Phosphatase (42-121) IU/L Troponin I High Sens (2.3-19.7) ng/L B-Natriuretic Peptide (5-100) pg/mL Total Protein (6.4-8.9) g/dL Albumin (3.2-5.5) g/dL Globulin (2.1-4.2) g/dL Albumin/Globulin Ratio (1.0-2.2) Lipase (11-82) U/L Nasal Adenovirus (PCR) Nasal B. parapertussis DNA (PCR) Nasal Coronavir 229E PCR Nasal Coronavir HKU1 PCR Nasal Coronavir NL63 PCR Nasal Coronavir OC43 PCR Nasal Enterovir/Rhinovir PCR Nasal Influenza B PCR Nasal Influenza A PCR Nasal Parainfluen 1 PCR Nasal Parainfluen 2 PCR Nasal Parainfluen 3 PCR Nasal Parainfluen 4 PCR Nasal RSV (PCR) Nasal Screen MRSA (PCR) (NEGATIVE) Nasal B.pertussis DNA PCR Nasal C.pneumoniae (PCR) Martín Human Metapneumo PCR Nasal M.pneumoniae (PCR) Nasal SARS-CoV-2 (PCR) 06/09/24 06/09/24 06/09/24 Range/Units 19:30 18:24 17:20 WBC (4.8-10.8) x10^3/uL RBC (4.70-6.10) 10^6/uL Hgb (14.0-18.0) g/dL Hct (42.0-52.0) % MCV (80.0-94.0) fL MCH (27.0-31.0) pg MCHC (32.0-36.0) g/dL RDW (12.0-15.0) % Plt Count (130-450) 10^3/uL MPV (7.4-11.4) fL Neut # (Auto) (1.5-6.6) 10^3/uL Lymph # (Auto) (1.5-3.5) 10^3/uL [place] # (Auto) (0.0-1.0) 10^3/uL Eos # (Auto) (0.0-0.7) 10^3/uL Baso # (Auto) (0.0-0.1) 10^3/uL Absolute Nucleated RBC x10^3/uL Nucleated RBC % /100WBC VBG pH 7.342 (7.31-7.41) VBG pCO2 53.9 H (41-51) mmHg VBG pO2 37.2 (25-47) mmHg VBG HCO3 28.6 H (23-28) mmol/L VBG Total CO2 30.2 H (24-29) mmol/L VBG O2 Saturation 68.3 (60-80) % VBG Base Excess 1.8 (-2 - +2) mmol/L Sodium (135-145) mmol/L Potassium (3.5-4.5) mmol/L Chloride (101-111) mmol/L Carbon Dioxide (21-32) mmol/L Anion Gap (6-13) BUN (6-20) mg/dL Creatinine (0.6-1.3) mg/dL Estimated GFR (MDRD) (>89) Glucose (74-104) mg/dL POC Whole Bld Glucose (70-100) mg/dL Calcium (8.5-10.3) mg/dL Magnesium (1.7-2.3) mg/dL Total Bilirubin (0.2-1.0) mg/dL AST (10-42) IU/L ALT (10-60) IU/L Alkaline Phosphatase (42-121) IU/L Troponin I High Sens (2.3-19.7) ng/L B-Natriuretic Peptide (5-100) pg/mL Total Protein (6.4-8.9) g/dL Albumin (3.2-5.5) g/dL Globulin (2.1-4.2) g/dL Albumin/Globulin Ratio (1.0-2.2) Lipase (11-82) U/L Nasal Adenovirus (PCR) NOT DETECTED Nasal B. parapertussis DNA (PCR) NOT DETECTED Nasal Coronavir 229E PCR NOT DETECTED Nasal Coronavir HKU1 PCR NOT DETECTED Nasal Coronavir NL63 PCR NOT DETECTED Nasal Coronavir OC43 PCR NOT DETECTED Nasal Enterovir/Rhinovir PCR NOT DETECTED Nasal Influenza B PCR NOT DETECTED Nasal Influenza A PCR NOT DETECTED Nasal Parainfluen 1 PCR NOT DETECTED Nasal Parainfluen 2 PCR NOT DETECTED Nasal Parainfluen 3 PCR NOT DETECTED Nasal Parainfluen 4 PCR NOT DETECTED Nasal RSV (PCR) NOT DETECTED Nasal Screen MRSA (PCR) NEGATIVE (NEGATIVE) Nasal B.pertussis DNA PCR NOT DETECTED Nasal C.pneumoniae (PCR) NOT DETECTED Martín Human Metapneumo PCR NOT DETECTED Nasal M.pneumoniae (PCR) NOT DETECTED Nasal SARS-CoV-2 (PCR) NOT DETECTED 06/09/24 Range/Units 16:10 WBC 6.6 (4.8-10.8) x10^3/uL RBC 4.82 (4.70-6.10) 10^6/uL Hgb 12.4 L (14.0-18.0) g/dL Hct 41.5 L (42.0-52.0) % MCV 86.1 (80.0-94.0) fL MCH 25.7 L (27.0-31.0) pg MCHC 29.9 L (32.0-36.0) g/dL RDW 15.2 H (12.0-15.0) % Plt Count 249 (130-450) 10^3/uL MPV 10.0 (7.4-11.4) fL Neut # (Auto) 3.9 (1.5-6.6) 10^3/uL Lymph # (Auto) 1.8 (1.5-3.5) 10^3/uL [place] # (Auto) 0.4 (0.0-1.0) 10^3/uL Eos # (Auto) 0.5 (0.0-0.7) 10^3/uL Baso # (Auto) 0.0 (0.0-0.1) 10^3/uL Absolute Nucleated RBC 0.00 x10^3/uL Nucleated RBC % 0.0 /100WBC VBG pH (7.31-7.41) VBG pCO2 (41-51) mmHg VBG pO2 (25-47) mmHg VBG HCO3 (23-28) mmol/L VBG Total CO2 (24-29) mmol/L VBG O2 Saturation (60-80) % VBG Base Excess (-2 - +2) mmol/L Sodium 138 (135-145) mmol/L Potassium 4.0 (3.5-4.5) mmol/L Chloride 101 (101-111) mmol/L Carbon Dioxide 31 (21-32) mmol/L Anion Gap 6.0 (6-13) BUN 16 (6-20) mg/dL Creatinine 1.0 (0.6-1.3) mg/dL Estimated GFR (MDRD) 93 (>89) Glucose 194 H (74-104) mg/dL POC Whole Bld Glucose (70-100) mg/dL Calcium 8.9 (8.5-10.3) mg/dL Magnesium 1.7 (1.7-2.3) mg/dL Total Bilirubin 0.3 (0.2-1.0) mg/dL AST 46 H (10-42) IU/L ALT 48 (10-60) IU/L Alkaline Phosphatase 108 (42-121) IU/L Troponin I High Sens 18.4 (2.3-19.7) ng/L B-Natriuretic Peptide 52 (5-100) pg/mL Total Protein 7.7 (6.4-8.9) g/dL Albumin 4.2 (3.2-5.5) g/dL Globulin 3.5 (2.1-4.2) g/dL Albumin/Globulin Ratio 1.2 (1.0-2.2) Lipase 116 H (11-82) U/L Nasal Adenovirus (PCR) Nasal B. parapertussis DNA (PCR) Nasal Coronavir 229E PCR Nasal Coronavir HKU1 PCR Nasal Coronavir NL63 PCR Nasal Coronavir OC43 PCR Nasal Enterovir/Rhinovir PCR Nasal Influenza B PCR Nasal Influenza A PCR Nasal Parainfluen 1 PCR Nasal Parainfluen 2 PCR Nasal Parainfluen 3 PCR Nasal Parainfluen 4 PCR Nasal RSV (PCR) Nasal Screen MRSA (PCR) (NEGATIVE) Nasal B.pertussis DNA PCR Nasal C.pneumoniae (PCR) Martín Human Metapneumo PCR Nasal M.pneumoniae (PCR) Nasal SARS-CoV-2 (PCR) Diagnostic Imaging Diagnostic Imaging Results: positive Final report reviewed Assessment/Plan Problem List (1) Bronchitis: Impression: Patient presents with diffuse wheezing, worsening shortness of breath. Chest x-ray with no obvious infiltrate. Improved this morning. Completed Solu-Medrol 40 mg for 3 doses. Transitioned to oral prednisone tomorrow. Oral Lasix from home converted to IV Lasix to optimize volume status - will give one more IV Lasix today. Continue around the clock breathing treatments. Wean BiPAP as tolerated. Advised to get pulmonary function testing done in outpatient setting, continue Spiriva and Symbicort as well as albuterol as needed in the meantime. (2) Obesity hypoventilation syndrome: Impression: Patient with no history of COPD or asthma, although he has not completed any PFT testing. Continue BiPAP when sleeping. Has had a couple episodes of bronchitis now. May be chronic in nature. Advised to see veterinary meat inspector in outpatient setting for PFTs and further evaluation. (3) Diabetes: Impression: Sugars very elevated. Unsure of regimen at home. will call with dosages. Increased long acting to 50 units long-acting insulin tonight, sliding scale insulin with meals (changed to high dose), and added long acting insulin in the morning, glucose checks, hypoglycemic protocol. Qualifiers: Diabetes mellitus complication status: without complication Diabetes mellitus terminologist insulin use: with terminologist use Diabetes mellitus type: type 2 Qualified Code(s): E11.9 - Type 2 diabetes mellitus without complications; Z79.4 - terminal operations supervisor (current) use of insulin
[2024-06-10] MEDS: INSULIN GLARGINE-YFGN 300 UNIT/3 ML PEN SUBQ ONE (08:49)
--- NOTE | 2024-06-10 09:11 | PHARMACY PROGRESS NOTE ---
Best Possible Medication History Admit Date and Time: 06/09/24 [id number] Home Medications Medication Instructions Recorded Confirmed Type lisinopril 20 mg tablet 20 mg PO DAILY 02/10/17 06/10/24 History furosemide 40 mg tablet 40 mg PO BID 11/24/23 06/10/24 History insulin regular hum U-500 conc 500 55 unit subcut QPM 11/25/23 06/10/24 History unit/mL subcutaneous soln (Humulin R U-500 (Concentrated) Insulin) insulin regular hum U-500 conc 500 80 unit subcut 1200 11/25/23 06/10/24 History unit/mL subcutaneous soln (Humulin R U-500 (Concentrated) Insulin) metformin 1,000 mg tablet 1,000 mg PO BID 11/25/23 06/10/24 History semaglutide 1 mg/dose (4 mg/3 mL) 1 mg SQ Q7D 11/25/23 06/10/24 History subcutaneous pen injector (Ozempic) ferrous sulfate 325 mg (65 mg 325 mg PO DAILY #90 tabs 11/28/23 06/10/24 Rx iron) tablet guaifenesin 600 mg tablet, 600 mg PO BID #60 tabs 11/28/23 06/10/24 Rx extended release 12 hr (Mucinex) insulin regular hum U-500 conc 500 140 unit subcut DAILY 06/10/24 06/10/24 History unit/mL subcutaneous soln (Humulin R U-500 (Concentrated) Insulin) Processed by: Pharmacy Medications reviewed in ED?: No Medication History completed: Yes Patient Interview: Pt interview ONLY source [facility] Statement: As the person ultimately responsible for medication therapy, providers are able to order a medication from an existing home medication list in [facility] via the "Reconcile Routine" prior to Confirmation of that medication by client support analyst. Such practice is discouraged except when the physician, in their clinical judgment, deems that a medical need exists for a medication without regard to previous use.
[2024-06-10] MEDS: predniSONE 20 MG TABLET PO SCH (09:46)
--- NOTE | 2024-06-10 10:59 | Discharge Summary ---
"Discharge Summary Admit Date: 06/09/24 Discharge Date: 06/11/24 Discharging Provider: Dr. Magaly Simon Primary Care Provider: Unsure - someone through the [place] - has their phone number at home Code Status: Attempt Resuscitation Discharge Facility Name: Home DIAGNOSES Admission Diagnoses: Acute bronchitis Obesity hypoventilation syndrome Diabetes Hypertension Discharge Diagnoses with Status of Each Condition: Acute bronchitispatient's tachypnea is much improved. His wheezing is also improved. Chest x-ray showed mild pulmonary edema. Received 3 doses of IV Solu-Medrol. Transition to oral prednisone today. Will complete 5-day course of prednisone. Received 1 more dose of IV Lasix today; advised to continue oral Lasix at home. Will also be sending him home with both his inhalers, as well as a rescue inhaler as needed. Advised to follow-up with both a juice tester and his primary care physician to start workup for underlying lung condition. Obesity hypoventilation syndromeno history of COPD or asthma, although he has not completed an PFT T testing. Continue CPAP at night at home. DKA Patient briefly went into DKA. Required insulin drip overnight. Transitioned this morning. Diabetescontinue home insulin regimen with insulin regular and sliding scale insulin. Hypertensionpatient is on lisinopril 20 mg at home. Blood pressure is elevated at this time. Will send him home on a double dose of lisinopril. Advised to follow-up with his primary care doctor in the outpatient setting. Continue metoprolol as well. HPI History of Present Illness: Patient is a 59 year old male with a history of obesity hypoventilation syndrome, bilateral peripheral edema, type 2 diabetes mellitus on insulin who presented for worsening shortness of breath. He noted that he started feeling shortness of breath approximately 2 to 3 days ago. He has CPAP machine at home, and he was using it without relief. He only has albuterol inhaler at home, which she states has already run out a few months ago. Of note, his discharge note from 11/2023 show that he should be on both Spiriva and Symbicort. The patient has had no new medications, no recent travel. He has had no sick contacts. He states that this is exactly what happened to him last November. After this time, he did have a sleep study test done. However, he still has not had pulmonary function testing done. He has never smoked in his life. He did grow up in home that use tobacco. He works in an office, and has had no environmental exposure to any toxins. When he got here, he was given a dose of IV Lasix. He was started on BiPAP, which did allow him to feel better. ED course: When patient first got here, he was saturating 96% on room air. He was tachypneic to the high 20s. His heart rate was in the 90s. His blood pressure was elevated in the 200s over 100s. Lab work showed no white count. BMP was largely unremarkable. Respiratory viral panel was negative. VBG remains pending. Chest x-ray showed mild pulmonary edema, no infiltrate was noted. CONSULTS | PROCEDURES Consultations: Respiratory thearpy Procedures: CXR HOSPITAL COURSE Hospital Course: Patient is a 59-year-old male with a history of obesity hypoventilation syndrome with few admissions for bronchitis who presents with dyspnea, wheezing, difficulty catching his breath. When he was seen, he was already on BiPAP. His CO2 was mildly elevated at 58. He remained on BiPAP overnight. He was started on IV Solu-Medrol for which she received 3 doses. This morning, he was much improved. He is now on room air, breathing more comfortably. Will continue 5-day course of prednisone for this acute bronchitis. Will monitor off antibiotics. He was advised of a few thingsfirstly, he needs to follow-up with a juice tester. He needs pulmonary function testing done to determine etiology of these frequent exacerbations. In the meantime, I will be sending him home with Symbicort and Spiriva, as well as albuterol as needed. He was taking this a few months ago, but ran out, and has had more exacerbations since. Secondly, I will be doubling his lisinopril dose. He was advised to keep a blood pressure log, and follow-up with his primary care physician. Moreover, likely exacerbated by the above exacerbation as well as steroid use, he briefly went into diabetic ketoacidosis. He required insulin drip overnight, and was transitioned this morning. He is doing well. He will continue his home regimen of insulin. Him and his demonstrate understanding of the above plan. ALLERGIES Allergies Allergy/AdvReac Type Severity Reaction Status Date / Time No Known Drug Allergies Allergy Verified 06/09/24 16:10 MEDICATIONS Ambulatory Orders Medication Instructions Recorded Confirmed furosemide 40 mg tablet 40 mg PO BID 11/24/23 06/10/24 insulin regular hum U-500 conc 500 55 unit subcut QPM 11/25/23 06/10/24 unit/mL subcutaneous soln (Humulin R U-500 (Concentrated) Insulin) insulin regular hum U-500 conc 500 80 unit subcut 1200 11/25/23 06/10/24 unit/mL subcutaneous soln (Humulin R U-500 (Concentrated) Insulin) metformin 1,000 mg tablet 1,000 mg PO BID 11/25/23 06/10/24 semaglutide 1 mg/dose (4 mg/3 mL) 1 mg SQ Q7D 11/25/23 06/10/24 subcutaneous pen injector (Ozempic) ferrous sulfate 325 mg (65 mg 325 mg PO DAILY #90 tabs 11/28/23 06/10/24 iron) tablet guaifenesin 600 mg tablet, 600 mg PO BID #60 tabs 11/28/23 06/10/24 extended release 12 hr (Mucinex) budesonide 0.5 mg/2 mL suspension 0.5 mg (2 mL) inhalation RTBID #60 06/10/24 for nebulization mL insulin regular hum U-500 conc 500 140 unit subcut DAILY 06/10/24 06/10/24 unit/mL subcutaneous soln (Humulin R U-500 (Concentrated) Insulin) lisinopril 40 mg tablet 40 mg PO DAILY #30 tabs 06/10/24 prednisone 20 mg tablet 40 mg (2 x 20 mg) PO DAILYWM #4 06/10/24 tabs tiotropium bromide 1.25 2 puff inhalation DAILY #4 grams 06/10/24 mcg/actuation mist for inhalation (Spiriva Respimat) albuterol sulfate 90 mcg/actuation 1 inh inhalation QID PRN shortness 06/11/24 aerosol inhaler (Ventolin HFA) of breath or wheezing #8.5 grams PHYSICAL EXAM AT DISCHARGE General Appearance: positive No acute distress and Alert; negative Anxious Eyes Bilateral: positive Normal inspection, PERRL and EOMI ENT: positive ENT inspection nml, Pharynx nml and No signs of dehydration Neck: positive Nml inspection, Thyroid nml, No JVD and Trachea midline Respiratory: positive Chest non-tender, No respiratory distress and Wheezes (minimal wheezing in bilateral lower lungs, improved from yesterday) Cardiovascular: positive Regular rate & rhythm, No murmur and Tachycardia; negative Systolic murmur or Diastolic murmur Peripheral Pulses: positive 2+ Abdomen: positive Non-tender, No organomegaly and No distention; negative Tenderness, Hepatomegaly or Splenomegaly Back: positive Nml inspection; negative CVA tenderness (R) or CVA tenderness (L) Skin: positive Color nml, No rash, Warm and Dry Extremities: positive Non-tender, Full ROM and Pedal edema (1+ bilaterally) Neurologic/Psychiatric: positive Oriented x3, Motor nml, Sensation nml and Mood/affect nml LABS 06/11/24 04:27 06/11/24 04:27 DIAGNOSTIC IMAGING Diagnostic Imaging Results: Final report reviewed QUALITY (Female Hip Fx Only) Was patient sent home on osteoporosis medication?: No FOLLOW UP Follow Up: Follow up with primary care provider. Follow up with juice tester. TIME SPENT Time Spent in Discharge (Minutes): 40 Discharge Plan Discharge Patient Disposition: Home, Self Care Condition: Good Prescriptions: New budesonide 0.5 mg/2 mL Suspension For Nebulization 0.5 mg inhalation RTBID Qty: 60 3RF prednisone 20 mg Tablet 40 mg PO DAILYWM Qty: 4 0RF Spiriva Respimat 1.25 mcg/actuation mist 2 puff inhalation DAILY Qty: 4 3RF lisinopril 40 mg tablet 40 mg PO DAILY Qty: 30 3RF albuterol sulfate [Ventolin HFA] 90 mcg/actuation HFA aerosol inhaler 1 inh inhalation QID PRN (Reason: shortness of breath or wheezing) Qty: 8.5 3RF Continued furosemide 40 MG tablet 40 mg PO BID Humulin R U-500 (Conc) Insulin 500 UNIT/ML solution 55 unit subcut QPM Humulin R U-500 (Conc) Insulin 500 UNIT/ML solution 80 unit subcut 1200 metformin 1,000 MG tablet 1,000 mg PO BID Ozempic 1 MG/0.75 ML pen injector 1 mg SQ Q7D ferrous sulfate 325 MG tablet 325 mg PO DAILY Qty: 90 0RF guaifenesin [Mucinex] 600 MG tablet extended release 12hr 600 mg PO BID Qty: 60 0RF Humulin R U-500 (Conc) Insulin 500 UNIT/ML solution 140 unit subcut DAILY Rx Instructions: 120u in the AM with food, 80u at 2pm, 50u at bedtime. Discontinued lisinopril 20 MG tablet 20 mg PO DAILY Activity Restrictions: Activity as Tolerated Diet: Diabetic Health Concerns: You came in because you were having shortness of breath. You had some wheezing on exam. Your chest x-ray showed that you had a little bit of inflammation and some fluid on your lungs. We changed your water pill to an IV form so it was a little stronger for the two days you were here. We also treated you for bronchitis with steroids. I will be sending you home with prednisone for the next 4 days. I will also be refilling your 2 inhalers. As we discussed, you need to use these both regularly aka every day. I will also be sending you home with albuterol which is what we call a rescue inhaler. If you are experiencing more shortness of breath, you can use this albuterol inhaler as needed. However, just to be clear, the other 2 inhalers you are going to use every single day as prescribed even if you are not feeling short of breath. It will be important that you follow-up with your primary care provider. You need a referral to see a juice tester a.k.a. a lung doctor you need further lung testing (i.e. pulmonary function testing) to determine which underlying lung condition you do have. Additionally, while you were here, your blood pressure remained very elevated. I have doubled your dose of your lisinopril. It is now 40mg daily. I want you to keep a blood pressure log, and take it with you to your next primary care provider appointment. At this time, they will either keep your medications the same, or add another one. Continue your metoprolol. You briefly went distantly called diabetic ketoacidosis as your sugars are very high. You required an insulin drip overnight. You are doing better this morning. Continue to use a low-carb diet at home. Please continue insulin regimen. Please continue to use your CPAP at night or even during the day if you are taking naps. We are glad you are feeling better, thank you allowing for us take care of you. Print Language: Spanish Patient Instructions: Bronchitis Acute Dc, Pulmonary Function Tests Ch Stand Alone Forms: PCP List"
[2024-06-10] MEDS: LABETALOL 20 MG/4 ML SYRINGE IVP ONE (11:18)
[2024-06-10] MEDS: lisinopriL 20 MG TABLET PO STA (11:56)
[2024-06-10] MEDS: METOPROLOL SUCCINATE 50 MG TABLET PO SCH (11:56)
[2024-06-10] MEDS: INSULIN LISPRO 300 UNIT/3 ML PEN SUBQ ONE (12:19)
[2024-06-10] MEDS: INSULIN REGULAR, HUMAN 300 UNIT/3 ML PEN IVP ONE ×3 (12:19→14:32)
[2024-06-10] MEDS: INSULIN LISPRO 300 UNIT/3 ML PEN SUBQ STA (13:22)
[2024-06-10] MEDS: SODIUM ZIRCONIUM CYCLOSILICATE 5 GM PACKET PO ONE (14:32)
[2024-06-10] MEDS: CONCENTRATED ALBUTEROL NEB 2.5 MG/0.5 ML INH STA (15:00)
[2024-06-10 16:49] LABS: CALCIUM 8.7 mg/dL (8.5-10.3); CREATININE 1.5 mg/dL (0.6-1.3); POTASSIUM 3.7 mmol/L (3.5-4.5)
[2024-06-10] MEDS: INSULIN LISPRO 300 UNIT/3 ML PEN SUBQ SCH (17:25)
[2024-06-10] MEDS ORDERED: INSULIN REGULAR IN 0.9 % NS 100 UNIT/100 ML BAG IV ONE (17:30)
[2024-06-10] MEDS ORDERED: SODIUM CHLORIDE 0.9% 1,000 ML ONE (17:30)
[2024-06-10] MEDS: NS W/20 MEQ KCL 1,000 ML IV SCH (17:38)
[2024-06-10] MEDS: INSULIN REGULAR IN 0.9 % NS 100 UNIT/100 ML BAG IV SCH (17:38)
[2024-06-10] MEDS: FUROSEMIDE 40 MG/4 ML VIAL IVP STA (17:39)
[2024-06-10] MEDS ORDERED: POTASSIUM CHLOR 10 MEQ/100 ML 10 MEQ/100 ML BAG IV SCH (18:00)
[2024-06-10] MEDS: POTASSIUM CHLOR 10 MEQ/100 ML 10 MEQ/100 ML BAG IV SCH ×2 (18:33→20:48)
[2024-06-10] MEDS ORDERED: POTASSIUM CHLOR 10 MEQ/100 ML 10 MEQ/100 ML BAG IV ONE (19:00)
[2024-06-10 19:48] LABS: CALCIUM 8.6 mg/dL (8.5-10.3); CREATININE 1.4 mg/dL (0.6-1.3); MAGNESIUM 1.6 mg/dL (1.7-2.3); PHOSPHORUS 2.2 mg/dL (2.5-5.0); POTASSIUM 3.9 mmol/L (3.5-4.5)
[2024-06-10] MEDS: INSULIN GLARGINE-YFGN 300 UNIT/3 ML PEN SUBQ SCH (20:13)
[2024-06-10] MEDS: MAGNESIUM SULFATE 2 GRAM 2 GM/50 ML BAG IV ONE (20:47)
[2024-06-10] MEDS: NEUTRA-PHOS 250 MG TABLET PO SCH (20:48)
[2024-06-11 00:43] LABS: CALCIUM 9.1 mg/dL (8.5-10.3); CREATININE 1.2 mg/dL (0.6-1.3); POTASSIUM 3.8 mmol/L (3.5-4.5)
[2024-06-11] MEDS: POTASSIUM CHLOR 10 MEQ/100 ML 10 MEQ/100 ML BAG IV SCH (01:22)
[2024-06-11 04:42] LABS: HGB - HEMOGLOBIN 11.5 g/dL (14.0-18.0); MEAN CORPUSCULAR HEMOGLOBIN 26.7 pg (27.0-31.0); MEAN CORPUSCULAR HGB CONC 31.9 g/dL (32.0-36.0); MEAN CORPUSCULAR VOLUME 83.5 fL (80.0-94.0); MEAN PLATELET VOLUME 9.6 fL (7.4-11.4); RED BLOOD COUNT 4.31 10^6/uL (4.70-6.10); RED CELL DISTRIBUTION WIDTH 15.3 % (12.0-15.0); WHITE BLOOD COUNT 11.2 x10^3/uL (4.8-10.8)
[2024-06-11 04:52] LABS: CALCIUM, IONIZED 1.11 mmol/L (1.15-1.33); VBG PH 7.361 (7.31-7.41)
[2024-06-11 04:58] LABS: CALCIUM 8.7 mg/dL (8.5-10.3); CREATININE 1.1 mg/dL (0.6-1.3); MAGNESIUM 2.2 mg/dL (1.7-2.3); PHOSPHORUS 3.5 mg/dL (2.5-5.0); POTASSIUM 4.1 mmol/L (3.5-4.5)
[2024-06-11] MEDS ORDERED: INSULIN GLARGINE-YFGN 300 UNIT/3 ML PEN SUBQ ONE (08:00)
[2024-06-11 08:01] VITALS: BP 148/79; TEMP 98.1; O2SAT 94
[2024-06-11] MEDS: lisinopriL 20 MG TABLET PO SCH (08:11)
[2024-06-11] MEDS: METOPROLOL SUCCINATE 50 MG TABLET PO SCH (08:12)
[2024-06-11] MEDS: INSULIN GLARGINE-YFGN 300 UNIT/3 ML PEN SUBQ ONE (08:13)
== END 2024-06-11 09:16 | disposition home or self-care (01) ==
LOC: ICU 15:47 → ED 15:47 → ICU 19:05
PROVIDERS: ADMIT Internal Medicine; ATTEND Internal Medicine
DX: Z68.42 Body mass index [BMI] 45.0-49.9, adult; Z79.84 Long term (current) use of oral hypoglycemic drugs; E11.10 Type 2 diabetes mellitus with ketoacidosis without coma; J96.01 Acute respiratory failure with hypoxia; E66.2 Morbid (severe) obesity with alveolar hypoventilation; I11.0 Hypertensive heart disease with heart failure; I50.9 Heart failure, unspecified; Z79.4 Long term (current) use of insulin; J20.9 Acute bronchitis, unspecified; Z79.85 Long-term (current) use of injectable non-insulin antidiabetic drugs; R00.0 Tachycardia, unspecified